=== PATIENT | female | born 1960 | race Caucasian/White ===

== ENCOUNTER → 2019-09-18 10:15 | Outpatient (CLI) | payer MEDICARE, SELFPAY ==
--- NOTE | ~2019-09-18 | DEXA_ITS ---
Bone Density Report Name: Raquel Marino Age: 58 Sex: Female Ethnicity: White Date of : 1960 Indication: monitoring treatment; height loss; postmenopausal Referring Provider: SWEETIE REECE Study: Bone densitometry was performed. Exam Date: September 18, 2019 Accession number: [id number] Bone Density: Region BMD T-score Z-score Classification AP Spine (L1, L2, L3) 0.947 -0.6 0.7 Normal Femoral Neck (Left) 0.767 -0.7 0.5 Normal Total Hip (Left) 1.007 0.5 1.5 Normal Femoral Neck (Right) 0.738 -1.0 0.3 Normal Total Hip (Right) 0.938 0.0 0.9 Normal Total Hip Mean 0.973 0.3 1.2 Normal World Health Organization criteria for BMD impression classify patients as: Normal (T-score at or above -1.0), Osteopenia (T-score between -1.0 and -2.5), or Osteoporosis (T-score at or below -2.5). 10-year Fracture Risk: FRAX not reported because: All T-scores for Spine Total, Hip Total, Femoral Neck at or above -1.0 Treated for osteoporosis Previous Exams: Region Exam Age BMD T-score BMD Change BMD Change Date g/cm2 vs Baseline vs Previous AP Spine(L1, L2, L3) 09/18/2019 58 0.947 -0.6 -0.018 -0.018 04/13/2015 54 0.966 -0.5 Total Hip(Left) 09/18/2019 58 1.007 0.5 0.044* 0.044* 04/13/2015 54 0.963 0.2 Total Hip(Right) 09/18/2019 58 0.938 0.0 0.015 0.015 04/13/2015 54 0.923 -0.2 *Denotes significance at 95% confidence level, LSC for AP Spine = 0.022 g/cm2, LSC for Total Hip = 0.027 g/cm2 Clinical Information Provided by Patient: Is being treated for osteoporosis Has used the following medications: HRT (i.e. estrogen/hormone therapy), Vitamin D, Calcium Patient maximum height was 63 Menopause Age: 47 Drinks caffeinated beverages Onset of menses at age 11 Number of children 3 Impression: The patient has normal bone mass. No significant bone loss was observed. Discussion: PATIENT UNDER TREATMENT WITH NO SIGNIFICANT BMD LOSS SINCE LAST EXAM. In an untreated patient, BMD typically declines with age. A lack of decline or gain is usually a sign that treatment is efficacious and fracture risk is reduced. It is important to ask patients whether they are taking their medications and to encourage continued and appropriate compliance with their osteoporosis therapies to reduce fracture risk. It is also important to review their risk factors and encourage appropriate calcium and vitamin D
== END ==
PROVIDERS: PCP Family Medicine; Visit Provider Obstetrics & Gynecology
DX: Z78.0 Asymptomatic menopausal state (principal)
CPT/HCPCS: 77080

== ENCOUNTER → 2020-06-10 13:41 | Outpatient (CLI) | payer MEDICARE, SELFPAY ==
--- NOTE | ~2020-06-10 | MM_ITS ---
EXAMINATION: MM screening delphine BI w cindy HISTORY: Screening TECHNIQUE: Craniocaudal and mediolateral oblique 3-D tomosynthesis images were obtained and synthetic 2-D images were generated. CAD analysis was submitted and interpreted. COMPARISON: Comparison to multiple prior studies sequentially, with oldest reviewed study dated 02/24. BREAST PARENCHYMAL COMPOSITION: The breasts are heterogenously dense, which may obscure small masses. FINDINGS: There are developing masses/asymmetries in both breasts which are partially obscured by fib roglandular tissue. There are no suspicious calcifications. IMPRESSION: 1. Developing bilateral breast masses/asymmetries. 2. Additional spot compression and mediolateral views with possible follow-up breast ultrasound recom mended. BI-RADS Category 0: Incomplete: Needs additional imaging evaluation. Reviewed, dictated and finalized at location A. HOUSE PICKER IMPRESSION: 1. Developing bilateral breast masses/asymmetries. 2. Additional spot compression and mediolateral views with possible follow-up b reast ultrasound recommended. BI-RADS Category 0: Incomplete: Needs additional imaging evaluation.
== END ==
PROVIDERS: Referring Provider Obstetrics & Gynecology Gynecology; Visit Provider Nurse Practitioner Family
DX: Z12.31 Encounter for screening mammogram for malignant neoplasm of breast (principal)
CPT/HCPCS: 77063; 77067

== ENCOUNTER → 2020-07-15 14:04 | Outpatient (CLI) | payer MEDICARE, SELFPAY ==
--- NOTE | ~2020-07-15 | MMUS_ITS ---
EXAMINATION: MM diagnostic delphine BI w cindy, US breast BI complete HISTORY: Follow-up breast asymmetries TECHNIQUE: Additional 3-D tomosynthesis images of the breasts were performed and synthetic 2-D images were generated. CAD analysis was submitted and interpreted. High resolution complete bilateral breas t ultrasound was performed. COMPARISON: Comparison to multiple prior studies sequentially, with oldest reviewed study dated 02/24. BREAST PARENCHYMAL COMPOSITION: The breasts are heterogenously dense, which may obscure small masses. FINDINGS: MAMMOGRAPHIC FINDINGS: There are bilateral breast masses which are partially obscured by fibroglandular tissue. There are sc attered benign breast calcifications. There is a tissue marker in the central aspect of the left earnest st posteriorly. ULTRASOUND: Right breast ultrasound: There are multiple benign-appearing cysts of the right breast. In addition t here is a oval hypoechoic 5 mm mass at 10:00, 6 cm from the nipple, likely a complicated cyst. Left breast ultrasound: Multiple cysts of the left breast. No suspicious masses identified in the lef t breast to suggest malignancy. IMPRESSION: 1. Probable benign right breast mass at 10:00, 6 cm from the nipple. Multiple benign cysts are identi fied in both breasts corresponding to masses identified by mammography. 2. Recommend 6 month follow-up limited right breast ultrasound BI-RADS category 3, probably benign findings. Reviewed, dictated and finalized at location A. IFIER IMPRESSION: 1. Probable benign right breast mass at 10:00, 6 cm from the nipple. Multiple b enign cysts are identified in both breasts corresponding to masses identified b y mammography. 2. Recommend 6 month follow-up limited right breast ultrasound BI-RADS category 3, probably benign findings.
== END ==
PROVIDERS: Visit Provider Obstetrics & Gynecology
DX: N63.11 Unspecified lump in the right breast, upper outer quadrant (principal); N60.02 Solitary cyst of left breast
CPT/HCPCS: 76641; 77062; 77066; G0279

== ENCOUNTER → 2021-01-14 14:49 | Outpatient (CLI) | payer MEDICARE, SELFPAY ==
--- NOTE | ~2021-01-14 | US_ITS ---
US breast RT limited DATE: 01/14/2021 15:19 INDICATION: Six-month follow-up of 10:00 5 mm hypoechoic area noted on 07/15/2020 ultrasound examinati on of right breast TECHNIQUE: Targeted ultrasound color flow imaging at 10:00 6 cm from nipple COMPARISON: 07/15/2020 right breast ultrasound FINDINGS: An approximately 4.5 mm hypoechoic area is identified at 10:00 6 cm from the nipple. There is no posterior shadowing or color flow signal associated with this finding. There has been no interv al increase in size since 07/15/2020. IMPRESSION: BI-RADS Category 3: Probably benign Recommendation: 6 month targeted right breast ultrasound follow-up at 10:00 6 cm from nipple Reviewed, dictated and finalized at Location A. Reviewed, dictated and finalized at location A. IMPRESSION: BI-RADS Category 3: Probably benign Recommendation: 6 month targeted right breast ultrasound follow-up at 10:00 6 c m from nipple
== END ==
PROVIDERS: Visit Provider Obstetrics & Gynecology
DX: R92.8 Other abnormal and inconclusive findings on diagnostic imaging of breast (principal)
CPT/HCPCS: 76642

== ENCOUNTER → 2021-08-21 09:11 | Outpatient (CLI) | payer MEDICARE, SELFPAY ==
--- NOTE | ~2021-08-21 | MMUS_ITS ---
EXAMINATION: MM diagnostic delphine BI w cindy, US breast BI complete HISTORY: Bilateral breast masses TECHNIQUE: Additional 3-D tomosynthesis images of the breasts were performed and synthetic 2-D images were generated. CAD analysis was submitted and interpreted. High resolution bilateral complete breas t ultrasound was performed. COMPARISON: Comparison to multiple prior studies sequentially, with oldest reviewed study dated 08/2015. BREAST PARENCHYMAL COMPOSITION: The breasts are heterogenously dense, which may obscure small masses. FINDINGS: MAMMOGRAPHIC FINDINGS: There are multiple masses in both breasts, largest in the right breast at approximately 12:00 measuri ng up to 3.5 cm. There are multiple scattered masses in the left breast which are partially obscured by fibroglandular tissue. ULTRASOUND: Complete bilateral US of all 4 quadrants of the breasts and retroareolar region was reviewed. Bilateral breast ultrasound: There are multiple cysts of both breasts, largest in the right breast at 12:00 measuring 3 cm maximum dimension corresponding to the mammographic finding. At 10:00, 6 cm fro m the nipple there is an oval hypoechoic mass with parallel orientation, no posterior features or int ernal vascularity measuring 7 mm, likely benign. No suspicious masses in the left breast. IMPRESSION: 1. Probable benign sonographic mass of the right breast at 10:00, 6 cm from the nipple. 2. Recommend 6 month follow-up targeted right breast ultrasound BI-RADS category 3, probably benign findings. Reviewed, dictated and finalized at location A. 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 Probable benign sonographic mass of the right breast at 10:00, 6 cm from the nipple. 2. Recommend 6 month follow-up targeted right breast ultrasound BI-RADS category 3, probably benign findings.
== END ==
PROVIDERS: Visit Provider Obstetrics & Gynecology Gynecology
DX: R92.8 Other abnormal and inconclusive findings on diagnostic imaging of breast (principal)
CPT/HCPCS: 76641; 77062; 77066; G0279

== ENCOUNTER → 2022-02-19 08:54 | Outpatient (CLI) | payer MEDICARE, SELFPAY ==
--- NOTE | ~2022-02-19 | US_ITS ---
EXAMINATION: US breast RT limited HISTORY: Six-month follow-up for probably benign right breast mass TECHNIQUE: Limited right breast ultrasound was performed. FINDINGS: There is a 9 mm cyst in the right breast at the 10:00 location 6 cm from the nipple. No ellen picious cystic or solid mass is identified. IMPRESSION: No suspicious cystic or solid mass identified. Recommend routine screening mammography, due in . BI-RADS Category 2: Benign finding(s). Reviewed, dictated and finalized at location A. IMPRESSION: No suspicious cystic or solid mass identified. Recommend routine screening mamm ography, due in August. BI-RADS Category 2: Benign finding(s).
== END ==
PROVIDERS: Visit Provider Obstetrics & Gynecology Gynecology
DX: R92.8 Other abnormal and inconclusive findings on diagnostic imaging of breast (principal)
CPT/HCPCS: 76642

== ENCOUNTER 2022-03-30 00:11 | Day surgery (SDC) | payer MEDICARE, SELFPAY ==
[2022-03-24 18:01] VITALS: BMI 28.5
--- NOTE | 2022-03-24 18:06 | PC.NURSE ---
Report to the Outpatient Waiting Room, entrance under the green pavilion located off [facility], at time __07:15AM on date __4-55-50 . OR Time: __09:15AM . - You and your visitor will be asked to self-screen and do not enter if you have any COVID symptoms. - Only one visitor and NO children visitors are allowed at this time. - The patient visitor is requested to leave or wait in car when not with patient due to restrictions. - A mask is required within the hospital. Patients may have clear liquids (water, carbonated beverages, clear teas, apple juice) until 3 hours prior to surgery with a maximum of 20 ounces. - No food from midnight until time of surgery - CLEAR LIQUIDS UP UNTIL 06:15AM Take the following medications with a SIP of water the morning of surgery: N/A Medications to discontinue per physician VITAMINS Date to take last bsbx [id number] Please no make-up, nail khmer, hairspray, perfume, deodorant, or body powder the day of surgery. No jewelry (including any body piercings) or valuables the day of surgery, leave them at home. Please take a shower or bath the night before, or the morning of, surgery with an antibacterial soap. Wear comfortable, loose fitting clothing. - Jewelry must be removed prior to entering the operating room. Rings and piercings that are not removed may be cut off. - The hospital will not accept responsibility for valuables. - Please leave all valuables, including medications, at home the day of surgery. If you are going home after surgery, a licensed flatbed driver must drive you home. - NO public transportation without another adult. - We recommend that an adult stay with you for 24 hours following discharge. - We also recommend that you do not drive, make important decision, drink alcoholic beverages, or take any drugs that were not prescribed by your health care provider for at least 24 hours after your discharge time. Follow any additional instructions given to you from your surgeon. If you or anyone in your household have experienced Covid symptoms in the past week, please notify your surgeon or the nurse liaison at the phone number below for possible testing. Telephone instructions given to ____PATIENT___and asked if any additional questions and then verbalized understanding. Patient advised to call surgeon office or pre surgery nurse liaison [phone] if any additional questions.
--- NOTE | 2022-03-30 07:30 | WPDHPUPDATE1 ---
History and Physical Update Update Date/Time: 03/30/22 07:30 History and Physical has been reviewed, including an updated exam of the patient. There are NO changes in the patient's condition. Risks, benefits, and alternatives have been discussed and questions answered. Patient agrees to proceed with procedure.
--- NOTE | 2022-03-30 07:30 | PM.HPGS ---
History of Present Illness History of Present Illness Consent: Risks, benefits, and alternatives have been discussed and questions answered. Patient agrees to proceed with procedure. Chief complaint: postmenopausal bleeding Narrative: Raquel Marino is a 61 year old female with an episode postmenopausal bleeding in December and a 2nd episode in January. Was recommended to proceed with workup. Patient presents today for hysteroscopy D&C. Risks of infection, bleeding, and perforation were reviewed. Possible pathology was discussed. Patient voices understanding and agrees to proceed. Review of Systems Genitourinary: Genitourinary: Reports other (Cramping) Musculoskeletal: Musculoskeletal: Reports back pain and Reports arthralgias PMFSH Past Medical History Medical History (Updated 03/30/22 @ 07:34 by Dior Miranda MD) GERD (gastroesophageal reflux disease) (normal spontaneous vaginal delivery) x3 Surgical History Surgical History (Updated 03/30/22 @ 07:33 by Dior Miranda MD) H/O cervical discectomy H/O left breast biopsy H/O lumbar discectomy History of tonsillectomy History of tubal ligation Family History Family History (Updated 06/12/19 @ 14:45 by Miranda Martínez) Sibling Family history of coronary artery disease Mother Family history of coronary artery disease, Onset Age: 76 Patient's mother is Heart disease Unknown Diabetes mellitus Cerebrovascular accident Heart disease Hypertension Sibling Kidney disease Father Kidney disease Social History Social History Smoking packs per day: 1 Smoking cigarettes per day: 20.0 Years smoked: 10 Smoking pack-years: 10.00 Smoking status: Former smoker Tobacco type: cigarettes Second hand tobacco smoke exposure: No Smoking end date: 08/09/06 Alcohol intake: never Substance use: never Substance use type: does not use Living arrangements: with family Spiritual care concerns: No Meds Home Medications and Allergies Home Medications Medication Instructions Recorded Confirmed Type estradiol 1 mg tablet 1 mg PO DAILY 03/24/22 03/30/22 History medroxyprogesterone 2.5 mg tablet 2.5 mg PO DAILY 03/24/22 03/30/22 History multivitamin with minerals-folic 1 tablet PO DAILY 03/24/22 03/30/22 History acid 0.4 mg tablet omega-3 fatty acids 1 cap PO DAILY 03/24/22 03/30/22 History omeprazole 20 mg tablet,delayed 20 mg PO DAILY 03/24/22 03/30/22 History release Allergies Allergy/AdvReac Type Severity Reaction Status Date / Time duloxetine Allergy Severe Diarrhea Verified 03/30/22 07:27 fluoxetine Allergy Severe Diarrhea Verified 03/30/22 07:27 venlafaxine Allergy Severe Diarrhea Verified 03/30/22 07:27 citalopram AdvReac Severe Diarrhea Verified 03/30/22 07:27 benzocaine AdvReac Unknown allergic Verified 03/30/22 07:27 contact dermatitis cobalt chloride AdvReac Unknown allergic Verified 03/30/22 07:27 contact dermatitis methylisothiazolinone AdvReac Unknown allergic Verified 03/30/22 07:27 contact dermatitis neomycin AdvReac Unknown allergic Verified 03/30/22 07:27 contact dermatitis propylene glycol AdvReac Unknown allergic Verified 03/30/22 07:27 contact dermatitis limonene AdvReac Unknown allergic Uncoded 03/30/22 07:27 contact dermatitis linalool AdvReac Unknown allergic Uncoded 03/30/22 07:27 contact dermatitis methyldibroma glutaronitrile AdvReac Unknown allergic Uncoded 03/30/22 07:27 contact dermatitis sesquiterpene lactone mix AdvReac Unknown allergic Uncoded 03/30/22 07:27 contact dermatitis tea tree oil AdvReac Unknown allergic Uncoded 03/30/22 07:27 contact dermatitis Exam Const: General: healthy appearing and alert Orientation/consciousness: patient oriented x3 GI: GI Palp: Yes Soft to palpation, No Tenderness to palpation present (GI) and No Palpa
[2022-03-30] MEDS: ACETAMINOPHEN 500 MG TABLET 1000 MG PO (07:38)
[2022-03-30] MEDS: LACTATED RINGERS 1,000 ML 30 ML IV CONT (07:45)
--- NOTE | 2022-03-30 07:49 | WPDANESEPPF ---
Anes - Initial Pre Proc Eval Procedure: Operation Date: 03/30/22 09:00 Proposed Procedures p Hysteroscopy Dilation and Curettage - Dior Miranda MD Date/Time: 03/30/22 07:49 Surgeon: Dior Miranda MD Pre Op Diagnosis: postmenopausal bleeding Patient Data Age: 61 Gender: F Height: 1.6 m Weight: 73 kg Allergies Allergy/AdvReac Type Severity Reaction Status Date / Time duloxetine Allergy Severe Diarrhea Verified 03/30/22 07:27 fluoxetine Allergy Severe Diarrhea Verified 03/30/22 07:27 venlafaxine Allergy Severe Diarrhea Verified 03/30/22 07:27 citalopram AdvReac Severe Diarrhea Verified 03/30/22 07:27 benzocaine AdvReac Unknown allergic Verified 03/30/22 07:27 contact dermatitis cobalt chloride AdvReac Unknown allergic Verified 03/30/22 07:27 contact dermatitis methylisothiazolinone AdvReac Unknown allergic Verified 03/30/22 07:27 contact dermatitis neomycin AdvReac Unknown allergic Verified 03/30/22 07:27 contact dermatitis propylene glycol AdvReac Unknown allergic Verified 03/30/22 07:27 contact dermatitis limonene AdvReac Unknown allergic Uncoded 03/30/22 07:27 contact dermatitis linalool AdvReac Unknown allergic Uncoded 03/30/22 07:27 contact dermatitis methyldibroma glutaronitrile AdvReac Unknown allergic Uncoded 03/30/22 07:27 contact dermatitis sesquiterpene lactone mix AdvReac Unknown allergic Uncoded 03/30/22 07:27 contact dermatitis tea tree oil AdvReac Unknown allergic Uncoded 03/30/22 07:27 contact dermatitis Home Medications Medication Instructions Recorded Confirmed Type estradiol 1 mg tablet 1 mg PO DAILY 03/24/22 03/30/22 History medroxyprogesterone 2.5 mg tablet 2.5 mg PO DAILY 03/24/22 03/30/22 History multivitamin with minerals-folic 1 tablet PO DAILY 03/24/22 03/30/22 History acid 0.4 mg tablet omega-3 fatty acids 1 cap PO DAILY 03/24/22 03/30/22 History omeprazole 20 mg tablet,delayed 20 mg PO DAILY 03/24/22 03/30/22 History release Patient hx anesthesia problems: none Family hx anesthesia problems: none Results Review: All pre-operative results and documents have been reviewed as part of the pre-operative evaluation. [facility] Past Medical History Medical History (Updated 03/30/22 @ 07:34 by Dior Miranda MD) GERD (gastroesophageal reflux disease) (normal spontaneous vaginal delivery) x3 Surgical History Surgical History (Updated 03/30/22 @ 07:33 by Dior Miranda MD) H/O cervical discectomy H/O left breast biopsy H/O lumbar discectomy History of tonsillectomy History of tubal ligation Family History Family History (Updated 06/12/19 @ 14:45 by Miranda Martínez) Sibling Family history of coronary artery disease Mother Family history of coronary artery disease, Onset Age: 76 Patient's mother is Heart disease Unknown Diabetes mellitus Cerebrovascular accident Heart disease Hypertension Sibling Kidney disease Father Kidney disease Social History Social History Smoking packs per day: 1 Smoking cigarettes per day: 20.0 Years smoked: 10 Smoking pack-years: 10.00 Smoking status: Former smoker Tobacco type: cigarettes Second hand tobacco smoke exposure: No Smoking end date: 08/09/06 Alcohol intake: never Substance use: never Substance use type: does not use Living arrangements: with family Spiritual care concerns: No Anes - Eval Final PreProcedure Day of Procedure 03/30/22 07:49 Patient weight: obese Heart: regular rate and rhythm Lungs: clear to auscultation and normal air movement Airway: Mallampati scale class II Neurological: alert and oriented Last oral intake: >/= 8 hours ASA classification: II Emergent: no Anesthetic plan: proceed Anesthesia type and monitoring: general GIVS and LMA Results Review: All pre-operative results and do
[2022-03-30 07:54] VITALS: BP 143/74; PULSE 62; RESP 16; TEMP 36.6; O2SAT 100
[2022-03-30] MEDS: LIDOCAINE HCL 1% PF 30 ML VIAL INFILTRATE (09:06)
[2022-03-30 09:47] VITALS: BP 145/68; PULSE 61; RESP 16; O2SAT 94
--- NOTE | 2022-03-30 09:49 | P.OP_ITS ---
Procedure Note - Detailed Date of Procedure 03/30/22 Pre-op Diagnosis postmenopausal bleeding Post-op Diagnosis Same Procedure Performed D&C hysteroscopy with MyoSure resection of fibroid Surgeon Dior Miranda MD Anesthesia MAC and Local Findings Uterus sounds to 8cm. There is a large anterior right fibroid blocking the right half of the upper endometrium. The remainder of the endometrium appears grossly atrophic. Once the fibroid is resected the remainder of the endometrium also appears atrophic. Description of Procedure The patient is taken to the operating room and placed under anesthesia in the dorsal lithotomy position. She was prepped and draped in the usual sterile fashion. [place] speculum was placed in the vagina and the cervix grasped on the anterior lip with a tenaculum. The cervix is injected in each quadrant with 1% lidocaine. The uterus is sounded to 8cm. The cervix is serially dilated with Hegar to an 8. The diagnostic hysteroscope was placed with the above- stated findings. In order to visualize around the fibroid it needed to be resected. The MyoSure device is opened and placed and under direct visualization the fibroid is removed almost in its entirety. The myoma graspers were used to remove the final 2 pieces. The hysteroscope was replaced and a good affect is noted. No further abnormalities are noted. A medium sharp curette is used to curette the endometrium until a good uterine cry was noted in all areas. Minimal materials obtained consistent with the atrophic appearance. Fluid balance at the end of the case was 100cc deficit. All instruments were then removed. Sponge, needle, and instrument counts are correct per the OR staff. Patient was awakened from anesthesia and taken to recovery in stable condition. Estimated Blood Loss 5 Drains No Packing No Pathology Yes (Endometrial curettings and shavings) Complications No immediate complications Condition Stable Disposition PACU
[2022-03-30] MEDS: fentaNYL CITRATE INJ (*CRX) 100 MCG/2 ML VIAL 25 MCG IV PUSH ×3 (09:58→10:07)
[2022-03-30 10:05] VITALS: BP 130/61; PULSE 57; RESP 16
[2022-03-30] MEDS: oxyCODONE HCL (*CRX) 5 MG TAB IR PO (10:20)
[2022-03-30 10:35] VITALS: BP 132/69; PULSE 50; RESP 16
== END 2022-03-30 10:56 | disposition home or self-care (01) ==
PROVIDERS: Visit Provider Obstetrics & Gynecology Gynecology
PROC: 0U5B8ZZ Destruction of Endometrium, Via Natural or Artificial Opening Endoscopic (ICD-10-PCS; CPT 58563; principal; 2022-03-30 09:00)
DX: N95.0 Postmenopausal bleeding (principal); Z87.891 Personal history of nicotine dependence; K21.9 Gastro-esophageal reflux disease without esophagitis; D25.9 Leiomyoma of uterus, unspecified; E66.9 Obesity, unspecified; Z68.30 Body mass index [BMI] 30.0-30.9, adult
CPT/HCPCS: 58561; 88305; A9270; J2704; J3010; J7030; J7120

== ENCOUNTER → 2022-08-27 09:27 | Outpatient (CLI) | payer MEDICARE, SELFPAY ==
--- NOTE | ~2022-08-27 | US_ITS ---
Pelvic ultrasound. Clinical History: Postmenopausal bleeding Technique: Realtime transabdominal and transvaginal scanning of the pelvis was performed. Color flow Doppler and Doppler spectral analysis were performed. Findings: The uterus is anteverted. The endometrial stripe is poorly delineated. Suggestion of 2 cm hypoechoic mass, which could reflect a submucosal fibroid. Suggestion of additional similar appearing 1.5 cm mass, possibly additional submucosal fibroid. Neither ovary is clearly delineated.. There is no evidence of free fluid in the cul de sac. Impression: Possible submucosal fibroids versus possibly endometrial thickening. Delineation of the endometrial s tripe is limited related to patient body habitus. Pre and postcontrast pelvic MR advised to better as sess for fibroid versus endometrial thickening. Reviewed, dictated and finalized at location . LLENCE COACH Impression: Possible submucosal fibroids versus possibly endometrial thickening. Delineatio n of the endometrial stripe is limited related to patient body habitus. Pre and postcontrast pelvic MR advised to better assess for fibroid versus endometrial thickening.
== END ==
PROVIDERS: Visit Provider Nurse Practitioner
DX: N95.0 Postmenopausal bleeding (principal)
CPT/HCPCS: 76830

== ENCOUNTER 2022-09-14 00:03 | Day surgery (SDC) | payer MEDICARE, SELFPAY ==
[2022-09-04 09:16] VITALS: BMI 29.7
--- NOTE | 2022-09-04 09:22 | PC.NURSE ---
Report to the Outpatient Waiting Room, entrance under the green pavilion located off [facility], at time 0600 on date 09/14/22. Planned Procedure Time: 0730. Time changes happen often and if your time is changed the preop area will call you the afternoon before. - You and your visitor will be asked to self-screen and do not enter if you have any COVID symptoms. - Only one visitor is requested with a max of two and NO children visitors are allowed at this time. - The patient visitor may be requested to leave or wait in car when not with patient due to distancing restrictions. - A mask is optional within the hospital at this time. Patients may have clear liquids (water, carbonated beverages, clear teas, apple juice) until 3 hours prior to surgery with a maximum of 20 ounces. - No food from midnight until time of surgery Take the following medications with a SIP of water the morning of surgery: N/A DO NOT STOP ANY OF YOUR OTHER PRESCRIPTION MEDICATIONS PRIOR TO SURGERY EXCEPT THE FOLLOWING Medications to discontinue per physician: VITAMINS/SUPPLEMENTS Date to take last dose: 09/10/22 Please no make-up, nail occitan, hairspray, perfume, deodorant, or body powder the day of surgery. No jewelry (including any body piercings) or valuables the day of surgery, leave them at home. Please take a shower or bath the night before, or the morning of, surgery with an antibacterial soap. Wear comfortable, loose fitting clothing. - Jewelry must be removed prior to entering the operating room. Rings and piercings that are not removed may be cut off. - The hospital will not accept responsibility for valuables. - Please leave all valuables, including medications, at home the day of surgery. If you are going home after surgery, a licensed backhaul driver must drive you home. - NO public transportation without another adult if you receive anesthesia. - We recommend that an adult stay with you for 24 hours following discharge. - We also recommend that you do not drive, make important decision, drink alcoholic beverages, or take any drugs that were not prescribed by your health care provider for at least 24 hours after your discharge time. Follow any additional instructions given to you from your surgeon. If you or anyone in your household have experienced Covid symptoms in the past week, please notify your surgeon or the nurse liaison at the phone number below for possible testing. Telephone instructions given to PT - MICHELLE RUCKER and asked if any additional questions and then verbalized understanding. Patient advised to call surgeon office or pre surgery nurse liaison [phone] if any additional questions.
[2022-09-14 06:15] VITALS: BP 132/67; PULSE 54; RESP 16; TEMP 36.1; O2SAT 100
[2022-09-14] MEDS: ACETAMINOPHEN 500 MG TABLET 1000 MG PO (06:40)
--- NOTE | 2022-09-14 07:03 | WPDANESEPPF ---
Anes - Initial Pre Proc Eval Procedure: Operation Date: 09/14/22 07:30 Proposed Procedures p Hysteroscopy with Dilation and Curettage - Dior Miranda MD Date/Time: 09/14/22 07:03 Surgeon: Dior Miranda MD Pre Op Diagnosis: Post Menopausal Bleeding Patient Data Age: 61 Gender: F Height: 1.6 m Weight: 77.65 kg Last Vital Signs Temp 36.1 C L 09/14/22 06:15 Pulse 54 L 09/14/22 06:15 Resp 16 09/14/22 06:15 BP 132/67 09/14/22 06:15 Pulse Ox 100 09/14/22 06:15 O2 Del Method Room Air 09/14/22 06:15 Allergies Allergy/AdvReac Type Severity Reaction Status Date / Time duloxetine Allergy Severe Diarrhea Verified 09/14/22 06:25 fluoxetine Allergy Severe Diarrhea Verified 09/14/22 06:25 venlafaxine Allergy Severe Diarrhea Verified 09/14/22 06:25 citalopram AdvReac Severe Diarrhea Verified 09/14/22 06:25 benzocaine AdvReac Unknown allergic Verified 09/14/22 06:25 contact dermatitis cobalt chloride AdvReac Unknown allergic Verified 09/14/22 06:25 contact dermatitis methylisothiazolinone AdvReac Unknown allergic Verified 09/14/22 06:25 contact dermatitis neomycin AdvReac Unknown allergic Verified 09/14/22 06:25 contact dermatitis propylene glycol AdvReac Unknown allergic Verified 09/14/22 06:25 contact dermatitis limonene AdvReac Unknown allergic Uncoded 09/14/22 06:25 contact dermatitis linalool AdvReac Unknown allergic Uncoded 09/14/22 06:25 contact dermatitis methyldibroma glutaronitrile AdvReac Unknown allergic Uncoded 09/14/22 06:25 contact dermatitis sesquiterpene lactone mix AdvReac Unknown allergic Uncoded 09/14/22 06:25 contact dermatitis tea tree oil AdvReac Unknown allergic Uncoded 09/14/22 06:25 contact dermatitis Home Medications Medication Instructions Recorded Confirmed Type estradiol 1 mg tablet 1 mg PO DAILY 03/24/22 09/14/22 History multivitamin with minerals-folic 1 tablet PO DAILY 03/24/22 09/14/22 History acid 0.4 mg tablet omega-3 fatty acids 1 cap PO DAILY 03/24/22 09/14/22 History pantoprazole 40 mg tablet,delayed 40 mg PO DAILY 09/04/22 09/14/22 History release progesterone micronized 200 mg 200 mg PO HS 09/04/22 09/14/22 History capsule Patient hx anesthesia problems: none Family hx anesthesia problems: other (mother slow to awaken) Results Review: All pre-operative results and documents have been reviewed as part of the pre-operative evaluation. PMFSH Past Medical History Medical History GERD (gastroesophageal reflux disease) (normal spontaneous vaginal delivery) x3 Surgical History Surgical History H/O cervical discectomy H/O left breast biopsy H/O lumbar discectomy History of tonsillectomy History of tubal ligation Family History Family History Sibling Family history of coronary artery disease Mother Family history of coronary artery disease, Onset Age: 76 Patient's mother is Heart disease Unknown Diabetes mellitus Cerebrovascular accident Heart disease Hypertension Sibling Kidney disease Father Kidney disease Social History Social History Smoking packs per day: 1 Smoking cigarettes per day: 20.0 Years smoked: 10 Smoking pack-years: 10.00 Smoking status: Former smoker Tobacco type: cigarettes Second hand tobacco smoke exposure: No Smoking end date: 08/09/06 Alcohol intake: current Drinks per week: 4 Substance use: never Substance use type: does not use Living arrangements: with family Spiritual care concerns: No Anes - Eval Final PreProcedure Day of Procedure 09/14/22 07:03 Patient weight: obese Heart:
[2022-09-14] MEDS: LACTATED RINGERS 1,000 ML 30 ML IV CONT (07:07)
--- NOTE | 2022-09-14 07:21 | WPDHPUPDATE1 ---
History and Physical Update Update Date/Time: 09/14/22 07:21 History and Physical has been reviewed, including an updated exam of the patient. There are NO changes in the patient's condition. Risks, benefits, and alternatives have been discussed and questions answered. Patient agrees to proceed with procedure.
--- NOTE | 2022-09-14 07:21 | PM.HPGS ---
History of Present Illness History of Present Illness Consent: Risks, benefits, and alternatives have been discussed and questions answered. Patient agrees to proceed with procedure. Chief complaint: Post Menopausal Bleeding Narrative: Raquel Marino is a 61 year old female with persistent postmenopausal bleeding despite progesterone. Patient with D&C hysteroscopy in March 30 with benign findings. Was recommended to repeat the procedure to evaluate the endometrium for new changes. Risks of infection, bleeding, perforation, and possible pathology were reviewed. Patient voices understanding and agrees to proceed. Review of Systems Review of Systems: not repeated day of surgery; patient states no changes in status PMFSH Past Medical History Medical History GERD (gastroesophageal reflux disease) (normal spontaneous vaginal delivery) x3 Surgical History Surgical History (Updated 09/14/22 @ 07:23 by Dior Miranda MD) H/O cervical discectomy H/O left breast biopsy H/O lumbar discectomy History of hysteroscopy March 30 with myomectomy and benign findings History of tonsillectomy History of tubal ligation Family History Family History Sibling Family history of coronary artery disease Mother Family history of coronary artery disease, Onset Age: 76 Patient's mother is Heart disease Unknown Diabetes mellitus Cerebrovascular accident Heart disease Hypertension Sibling Kidney disease Father Kidney disease Social History Social History Smoking packs per day: 1 Smoking cigarettes per day: 20.0 Years smoked: 10 Smoking pack-years: 10.00 Smoking status: Former smoker Tobacco type: cigarettes Second hand tobacco smoke exposure: No Smoking end date: 08/09/06 Alcohol intake: current Drinks per week: 4 Substance use: never Substance use type: does not use Living arrangements: with family Spiritual care concerns: No Meds Home Medications and Allergies Home Medications Medication Instructions Recorded Confirmed Type estradiol 1 mg tablet 1 mg PO DAILY 03/24/22 09/14/22 History multivitamin with minerals-folic 1 tablet PO DAILY 03/24/22 09/14/22 History acid 0.4 mg tablet omega-3 fatty acids 1 cap PO DAILY 03/24/22 09/14/22 History pantoprazole 40 mg tablet,delayed 40 mg PO DAILY 09/04/22 09/14/22 History release progesterone micronized 200 mg 200 mg PO HS 09/04/22 09/14/22 History capsule Allergies Allergy/AdvReac Type Severity Reaction Status Date / Time duloxetine Allergy Severe Diarrhea Verified 09/14/22 06:25 fluoxetine Allergy Severe Diarrhea Verified 09/14/22 06:25 venlafaxine Allergy Severe Diarrhea Verified 09/14/22 06:25 citalopram AdvReac Severe Diarrhea Verified 09/14/22 06:25 benzocaine AdvReac Unknown allergic Verified 09/14/22 06:25 contact dermatitis cobalt chloride AdvReac Unknown allergic Verified 09/14/22 06:25 contact dermatitis methylisothiazolinone AdvReac Unknown allergic Verified 09/14/22 06:25 contact dermatitis neomycin AdvReac Unknown allergic Verified 09/14/22 06:25 contact dermatitis propylene glycol AdvReac Unknown allergic Verified 09/14/22 06:25 contact dermatitis limonene AdvReac Unknown allergic Uncoded 09/14/22 06:25 contact dermatitis linalool AdvReac Unknown allergic Uncoded 09/14/22 06:25 contact dermatitis methyldibroma glutaronitrile AdvReac Unknown allergic Uncoded 09/14/22 06:25 contact dermatitis sesquiterpene lactone mix AdvReac Unknown allergic Uncoded 09/14/22 06:25 contact dermatitis tea tree oil AdvReac Unknown allergic Uncoded 09/14/22 06:25 contact dermatitis Vital Signs Vital Signs - 24 hr
[2022-09-14] MEDS: LIDOCAINE HCL 1% PF 30 ML VIAL 10 ML INFILTRATE (07:44)
--- NOTE | 2022-09-14 08:31 | SUR.OPER ---
Pathologist talked to Dr Miranda [id number] pertaining to specimen sent to lab for Frozen Section for tissue evaluation.
[2022-09-14 08:38] VITALS: BP 86/50; PULSE 61; RESP 14; O2SAT 100
--- NOTE | 2022-09-14 08:51 | W.PM.PROC2 ---
Procedure Note - Detailed Date of Procedure 09/14/22 Pre-op Diagnosis Post Menopausal Bleeding Post-op Diagnosis Same Procedure Performed Hysteroscopy with myomectomy Surgeon Dior Miranda MD Anesthesia MAC and Local Findings large fibroid filling 3 force of the endometrial cavity; atrophic appearing endometrium; posterior wall perforation Description of Procedure The patient is taken to the operating room and placed under anesthesia in the dorsal lithotomy position. She was prepped and draped in usual sterile fashion. [place] speculum was placed in the vagina and the cervix grasped on the anterior lip tenaculum. The cervix is injected in each quadrant with 1% lidocaine. The uterus is sounded to 8cm. The diagnostic hysteroscope was placed and the large fibroid is noted. The Aveeta resection device is placed through the hysteroscope. Under direct visualization the majority of the fibroid is resected. Fluid balance remained approximately 100 to 200 throughout the majority of the case. While resecting the remainder at the posterior wall, fluid imbalance became 700 and the current fluid bag was emptied. Upon reconnecting the next fluid bag, I inspected the posterior wall carefully and a perforation was noted. The case was stopped and all instruments removed. The specimen was sent for immediate frozen section to verify no bowel tissue present. Frozen section returned with only myometrium and endometrium present. The patient was fully awakened from anesthesia and taken to recovery in stable condition. The final fluid imbalance was 900cc the majority of which was intraperitoneally through the perforation. Only approximately 200 is suspected to be intravenous. Sponge, needle, and instrument counts are correct per the OR staff. Estimated Blood Loss -5.0 Drains No Packing No Pathology Yes ( endometrial shavings) Complications Other complications ( posterior uterine wall perforation) Condition Stable Disposition PACU
[2022-09-14 09:00] VITALS: BP 117/80; PULSE 64; RESP 14; O2SAT 100
[2022-09-14 09:30] VITALS: BP 138/63; PULSE 45; RESP 14
== END 2022-09-14 09:53 | disposition home or self-care (01) ==
PROVIDERS: Visit Provider Obstetrics & Gynecology Gynecology
PROC: 0U5B8ZZ Destruction of Endometrium, Via Natural or Artificial Opening Endoscopic (ICD-10-PCS; CPT 58563; principal; 2022-09-14 07:30)
DX: N95.0 Postmenopausal bleeding (principal); D25.9 Leiomyoma of uterus, unspecified; N99.71 Accidental puncture and laceration of a genitourinary system organ or structure during a genitourinary system procedure; K21.9 Gastro-esophageal reflux disease without esophagitis; Z87.891 Personal history of nicotine dependence; E66.9 Obesity, unspecified; Z68.30 Body mass index [BMI] 30.0-30.9, adult
CPT/HCPCS: 58561; 88305; 88331; A9270; J2250; J2405; J2704; J3010; J7120

== ENCOUNTER 2022-09-15 00:10 | Emergency (ER) | payer MEDICARE, SELFPAY ==
--- NOTE | ~2022-09-15 | CT_ITS ---
CT Abdomen and Pelvis with contrast. History: Abdominal pain. Spiral CT of the abdomen and pelvis was performed after the administration of intravenous contrast. 1 00 cc of Omnipaque 350 was administered intravenously without complication. Dose reduction technique was used on this scan by utilizing automated exposure control and iterative reconstruction technique. The dose-length product (DLP) was 588.83 mGy-cm. Findings: Scans through the lung bases demonstrate mild atelectatic change. Small hiatal hernia noted . The liver, spleen, pancreas, gallbladder, adrenals and kidneys are within normal limits. No evidence of aortic aneurysm. No lymphadenopathy is seen. There is no evidence of bowel obstruction. There is no evidence to suggest acute appendicitis or dive rticulitis. Images through the pelvis were performed. Urinary bladder unremarkable. No adnexal mass evident. Trac e ascites is seen. Questionable tiny amount of free air in the right adnexal region. Impression: Questionable small amount of free air in the right adnexal region. Correlate for postprocedural carranza e versus any possibility of bowel perforation. Trace free fluid present, but no fluid collection. Small hiatal hernia. Reviewed, dictated and finalized at location . [employer] JOURNALIST Impression: Questionable small amount of free air in the right adnexal region. Correlate fo r postprocedural change versus any possibility of bowel perforation. Trace free fluid present, but no fluid collection. Small hiatal hernia.
[2022-09-15 00:23] VITALS: BP 144/71; PULSE 68; RESP 22; TEMP 37.1; O2SAT 98
[2022-09-15 00:30] LABS: Basophils Percent Auto 0.2 % (0.2-1.2); Eosinophils Absolute Auto 0.1 K/mm3 (0-0.3); Eosinophils Percent Auto 1.3 % (0-4.4); Hematocrit 35.2 % (37.0-47.0); Hemoglobin 11.7 g/dL (12.0-15.0); Immature Granulocyte Absolute 0.03 K/mm3 (0.00-0.031); Immature Granulocyte Percent A 0.3 % (0-0.5); Lymphocytes Absolute Auto 2.44 K/mm3 (0.9-3.2); Lymphocytes Percent Auto 22.3 % (18.3-44.2); Mean Corpuscular HGB Conc 33.2 g/dl (32-36); Mean Corpuscular Hemoglobin 31.3 pg (26-34); Mean Corpuscular Volume 94.1 fl (80-100); Mean Platelet Volume 9.4 fl (7.4-10.4); Monocytes Absolute Auto 0.5 K/mm3 (0.1-0.6); Monocytes Percent Auto 4.6 % (2.6-8.5); Neutrophils Absolute Auto 7.8 K/mm3 (1.3-6.7); Neutrophils Percent Auto 71.3 % (45.5-73.1); Platelet Count Result 315 k/mm3 (150-375); Red Blood Count 3.74 M/mm3 (4.2-5.4); Red Cell Distribution Width 13.5 % (11.5-14.5); White Blood Count 10.9 K/mm3 (4.5-10.0)
[2022-09-15 00:39] LABS: Alanine Aminotransferase 22 U/L (6-35); Albumin Level 3.7 g/dL (3.5-5.1); Alkaline Phosphatase 62 U/L (38-126); Anion Gap 2 mmol/L (8-16); Aspartate Amino Transferase 23 U/L (14-36); Bilirubin,Total 0.4 mg/dL (0.2-1.3); Blood Urea Nitrogen 11 mg/dL (7-17); Calcium 8.9 mg/dL (8.4-10.2); Carbon Dioxide 28 mmol/L (22-30); Chloride 103 mmol/L (98-107); Estimated CRCL calculation 77 ml/min; Estimated Glomerular Filt Rate > 60; Glucose 104 mg/dL (65-110); Lipase 82 U/L (23-300); Potassium 3.7 mmol/L (3.4-5.0); Sodium 133 mmol/L (137-145)
[2022-09-15 01:00] VITALS: BP 131/73; PULSE 70; RESP 18; TEMP 36.8; O2SAT 97
--- NOTE | 2022-09-15 02:20 | ED.GENADULT ---
HPI - General Adult General Chief complaint: Abdominal Pain Stated complaint: abdominal pain Time Seen by Provider: 09/15/22 02:12 History of Present Illness HPI narrative: 59-year-old female presents to the emergency department for evaluation of lower abdominal pain. Patient had a hysteroscopy and myomectomy today by Dr. Miranda. Patient states after the surgery she was feeling okay but after getting home she had increased abdominal pain. Patient describes lower abdominal pain that is intense and describes a lower abdominal pressure. Patient is also having associated vaginal bleeding. Procedure note describes a hysteroscopy with myomectomy due to a large fibroid Related Data Home Medications Medication Instructions Recorded Confirmed estradiol 1 mg tablet 1 mg PO DAILY 03/24/22 09/14/22 multivitamin with minerals-folic 1 tablet PO DAILY 03/24/22 09/14/22 acid 0.4 mg tablet omega-3 fatty acids 1 cap PO DAILY 03/24/22 09/14/22 pantoprazole 40 mg tablet,delayed 40 mg PO DAILY 09/04/22 09/14/22 release progesterone micronized 200 mg 200 mg PO HS 09/04/22 09/14/22 capsule Allergies Allergy/AdvReac Type Severity Reaction Status Date / Time duloxetine Allergy Severe Diarrhea Verified 09/15/22 01:03 fluoxetine Allergy Severe Diarrhea Verified 09/15/22 01:03 venlafaxine Allergy Severe Diarrhea Verified 09/15/22 01:03 citalopram AdvReac Severe Diarrhea Verified 09/15/22 01:03 benzocaine AdvReac Unknown allergic Verified 09/15/22 01:03 contact dermatitis cobalt chloride AdvReac Unknown allergic Verified 09/15/22 01:03 contact dermatitis methylisothiazolinone AdvReac Unknown allergic Verified 09/15/22 01:03 contact dermatitis neomycin AdvReac Unknown allergic Verified 09/15/22 01:03 contact dermatitis propylene glycol AdvReac Unknown allergic Verified 09/15/22 01:03 contact dermatitis limonene AdvReac Unknown allergic Uncoded 09/15/22 01:03 contact dermatitis linalool AdvReac Unknown allergic Uncoded 09/15/22 01:03 contact dermatitis methyldibroma glutaronitrile AdvReac Unknown allergic Uncoded 09/15/22 01:03 contact dermatitis sesquiterpene lactone mix AdvReac Unknown allergic Uncoded 09/15/22 01:03 contact dermatitis tea tree oil AdvReac Unknown allergic Uncoded 09/15/22 01:03 contact dermatitis Review of Systems Review of Systems: CONSTITUTIONAL: Denies fever, chills, or sweats. EYES: Denies visual changes, redness, or discharge. ENT: Denies rhinorrhea, congestion, sore throat, or otalgia. CARDIOVASCULAR: Denies chest pain, palpitations, or edema. RESPIRATORY: Denies cough or dyspnea. GASTROINTESTINAL: See HPI GENITOURINARY: Denies dysuria or hematuria. SKIN: Denies rash or itching. MUSCULOSKELETAL: Denies back pain, joint pain, or myalgia. NEUROLOGIC: Denies headache, numbness, or weakness. [facility] Past Medical History Medical History (Updated 09/15/22 @ 05:33 by Maxime Gates MD) GERD (gastroesophageal reflux disease) (normal spontaneous vaginal delivery) x3 Surgical History Surgical History (Updated 09/14/22 @ 07:23 by Dior Miranda MD) H/O cervical discectomy H/O left breast biopsy H/O lumbar discectomy History of hysteroscopy March 30 with myomectomy and benign findings History of tonsillectomy History of tubal ligation Family History Family History Sibling Family history of coronary artery disease Mother Family history of coronary artery disease, Onset Age: 76 Patient's mother is Heart disease Unknown Diabetes mellitus Cerebrovascular accident Heart disease Hypertension Sibling Kidney disease Father Kidney disease Social History Social History Smoking packs per day: 1 Smoking cigarettes per day: 20.0 Years smoke
[2022-09-15] MEDS: HYDROmorphone HCL INJ (*CRX) 1 MG/ML SYR IV PUSH (02:22)
[2022-09-15 02:30] VITALS: BP 118/56; PULSE 90; RESP 14; O2SAT 96
[2022-09-15 02:44] LABS: Prothrombin Time 12.5 Seconds (11.1-14.7)
[2022-09-15 02:45] LABS: Partial Thromboplastin Time 28.7 SECONDS (22.3-36.8)
[2022-09-15 03:54] LABS: RBC Urine 0-2 /hpf (0-2); Squamous Epithelial Cell Urine Rare /hpf (Few); WBC Urine 0-3 /hpf
[2022-09-15 03:57] LABS: Appearance Urine Clear (Clear); Bilirubin Urine Negative (Negative); Blood Urine 1+ (Negative); Color Urine Yellow (Yellow); Glucose Urine UA Negative (Negative); Ketones Urine Negative (Negative); Leukocyte Esterase Ur Negative LEU/UL (Negative); Nitrate Urine Negative (Negative); Protein Urine Negative (Negative); Urobilinogen Urine 0.2 mg/dL (<2.0); pH Urine 8.5 (5.0-9.0)
[2022-09-15 03:59] LABS: Add Urine Microscopic? YES
[2022-09-15 04:32] VITALS: BP 119/60; PULSE 94; RESP 14; O2SAT 97
[2022-09-15 05:45] VITALS: BP 100/64; PULSE 78; RESP 19; O2SAT 97
== END 2022-09-15 05:45 | disposition home or self-care (01) ==
PROVIDERS: Emergency Provider Emergency Medicine; PCP Emergency Medicine
DX: G89.18 Other acute postprocedural pain (principal); R10.30 Lower abdominal pain, unspecified; K21.9 Gastro-esophageal reflux disease without esophagitis; Z87.891 Personal history of nicotine dependence
CPT/HCPCS: 36415; 74177; 80053; 81001; 83690; 85025; 85610; 85730; 86850; 86900; 86901; 96374; 96375; 99284; J0131; J1170; Q9967

== ENCOUNTER → 2022-11-02 14:47 | Outpatient (CLI) | payer MEDICARE, SELFPAY ==
--- NOTE | ~2022-11-02 | MM_ITS ---
EXAMINATION: MM screening delpihne BI w cindy HISTORY: Screening TECHNIQUE: Craniocaudal and mediolateral oblique 3-D tomosynthesis images were obtained and synthetic 2-D images were generated. CAD analysis was submitted and interpreted. COMPARISON: Comparison to multiple prior studies sequentially, with oldest reviewed study dated 05/08. BREAST PARENCHYMAL COMPOSITION: The breasts are heterogeneously dense, which may obscure small masses FINDINGS: There are multiple developing masses in the right breast which are obscured by fibroglandul ar tissue. The left breast is stable without evidence for malignancy. Left breast asymmetries are unc hanged. IMPRESSION: 1. Developing right breast masses, increased in number and size compared with prior studies. 2. Additional mammographic views and possible breast ultrasound are recommended. BI-RADS Category 0: Incomplete: Needs additional imaging evaluation. Reviewed, dictated and finalized at location A. IMPRESSION: 1. Developing right breast masses, increased in number and size compared with p rior studies. 2. Additional mammographic views and possible breast ultrasound are recommended . BI-RADS Category 0: Incomplete: Needs additional imaging evaluation.
== END ==
PROVIDERS: Visit Provider Nurse Practitioner
DX: Z12.31 Encounter for screening mammogram for malignant neoplasm of breast (principal); N63.10 Unspecified lump in the right breast, unspecified quadrant
CPT/HCPCS: 77063; 77067

== ENCOUNTER → 2022-11-27 08:45 | Outpatient (CLI) | payer MEDICARE, SELFPAY ==
--- NOTE | ~2022-11-27 | MMUS_ITS ---
EXAMINATION: MM diagnostic delphine RT w cindy, US breast RT limited HISTORY: Right breast masses on screening mammogram TECHNIQUE: Additional 3-D tomosynthesis images of the right breast were performed and synthetic 2-D i mages were generated. CAD analysis was submitted and interpreted. High resolution limited right breas t ultrasound was performed. COMPARISON: 02/19/2022, 08/21/2021, 01/14/2021, 07/15/2020, 06/10/2020 FINDINGS: MAMMOGRAPHIC FINDINGS: Spot compression views demonstrate multiple obscured waxing and waning right breast masses suspicious mammographically detected mass is identified. ULTRASOUND: A previously described cyst at the 10:00 location, 6 cm from the nipple is stable. An adjacent 2 cm s imple cyst is also noted. IMPRESSION: 1. No mammographic or sonographic evidence of malignancy. 2. Recommend routine screening mammography in one year. BI-RADS Category 2: Benign finding(s). Reviewed, dictated and finalized at location A. IMPRESSION: 1. No mammographic or sonographic evidence of malignancy. 2. Recommend routine screening mammography in one year. BI-RADS Category 2: Benign finding(s).
== END ==
PROVIDERS: Visit Provider Obstetrics & Gynecology Gynecology
DX: R92.8 Other abnormal and inconclusive findings on diagnostic imaging of breast (principal)
CPT/HCPCS: 76642; 77061; 77065; G0279

== ENCOUNTER 2022-12-24 09:18 | Outpatient (CLI) | payer MEDICARE, SELFPAY ==
--- NOTE | ~2022-12-24 | US_ITS ---
EXAMINATION: US breast RT limited HISTORY: Unspecified lump in the upper outer quadrant of the right breast TECHNIQUE: Limited right breast ultrasound is performed. COMPARISON: 11/27/2022, 02/19/2022, 08/21/2021 FINDINGS: Multiple simple cysts are noted in the upper outer quadrant of the breast in the area of pa lpable concern. No suspicious cystic or solid mass is identified. IMPRESSION: Multiple right breast cysts corresponding to the palpable abnormality of concern. BI-RADS Category 2: Benign finding(s). Reviewed, dictated and finalized at location A. IMPRESSION: Multiple right breast cysts corresponding to the palpable abnormality of concer n. BI-RADS Category 2: Benign finding(s).
== END 2022-12-24 09:19 | disposition home or self-care (01) ==
LOC: CHSIMG 09:25
PROVIDERS: Visit Provider Nurse Practitioner
DX: N60.01 Solitary cyst of right breast (principal)
CPT/HCPCS: 76641; 76642

== ENCOUNTER 2023-12-14 14:53 | Outpatient (CLI) | payer MEDICARE, SELFPAY ==
--- NOTE | ~2023-12-14 | MM_ITS ---
EXAMINATION: MM screening delphine BI w cindy HISTORY: Screening mammogram TECHNIQUE: Craniocaudal and mediolateral oblique 3-D tomosynthesis images were obtained and synthetic 2-D images were generated. CAD analysis was submitted and interpreted. COMPARISON: 12/24/2022 Limited right breast ultrasound 11/27/2022 diagnostic right mammogram and Limited right breast ultrasound 11/02/2022 bilateral screening mammogram BREAST PARENCHYMAL COMPOSITION: The breasts are heterogeneously dense, which may obscure small masses . FINDINGS: There is waxing and waning of circumscribed masses over serial examinations consistent with fibrocystic breasts. There is no evidence of suspicious mass, calcification, or architectural distor tion to suggest malignancy in either breast. There has been no suspicious interval change. IMPRESSION: 1. Fibrocystic breasts. No mammographic evidence of malignancy. 2. Recommend routine screening mammography in one year. BI-RADS Category 2: Benign finding(s) Reviewed, dictated and finalized at location B.
== END 2023-12-14 14:54 ==
LOC: MICIMG 14:56
PROVIDERS: Visit Provider Nurse Practitioner
DX: Z12.31 Encounter for screening mammogram for malignant neoplasm of breast (principal); R92.8 Other abnormal and inconclusive findings on diagnostic imaging of breast
CPT/HCPCS: 77063; 77067

== ENCOUNTER 2024-09-25 11:47 | Outpatient (CLI) | payer MEDICARE, SELFPAY ==
--- NOTE | ~2024-09-25 | DEXA_ITS ---
Bone Density Report Name: MICHELLE RUCKER Age: 63 Sex: Female Ethnicity: White Date of : 1960 Indication: postmenopausal; screening for osteoporosis; Referring Provider: Dave, Anna Study: Bone densitometry was performed. Exam Date: September 25, 2024 Accession number: [id number] Bone Density: Region BMD T-score Z-score Classification AP Spine(L1-L4) 0.955 -0.8 0.9 Normal Femoral Neck (Left) 0.802 -0.4 1.1 Normal Total Hip (Left) 0.986 0.4 1.6 Normal Femoral Neck (Right) 0.774 -0.7 0.8 Normal Total Hip (Right) 0.958 0.1 1.4 Normal Femoral Neck Mean 0.788 -0.5 1.0 Normal Total Hip Mean 0.972 0.2 1.5 Normal World Health Organization criteria for BMD impression classify patients as: Normal (T-score at or above -1.0), Osteopenia (T-score between -1.0 and -2.5), or Osteoporosis (T-score at or below -2.5). Clinical Information Provided by Patient: Patient maximum height was 63 Menopause Age: 46 No regular weight bearing exercise Does not regularly consume dairy products Onset of menses at age 11 Number of children 3 Impression: The patient has normal bone mass. Discussion: BONE DENSITY IS ABOVE THE MINIMUM DESIRABLE LEVEL AT ALL SKELETAL SITES TESTED. This patient?s bone mineral density is above the minimum desirable level (T-score -1.0 or better) at all sites measured. The patient should follow a healthful lifestyle (good nutrition with adequate calcium and vitamin D, and appropriate weight-bearing exercise). Follow-Up: Consider repeating this study in 5 years or sooner if there is some new clinical indication. Reported by: BREANA on 09/25/2024 12:11:00 PM. Reviewed, dictated and finalized at location A.
--- OUTSIDE RECORDS SUMMARY | 2024-09-25 14:37 | XMS_ITS | Encounter Summary ---
Author Organization [facility] Healthcare Address [address] [place] [address] Care Team Providers Care Safety Deposit Clerk Name Role Phone Heather Henderson MD Primary Care Provider [phone] Maciej Coker MD Unavailable [phone] Encounter Details Date Type Department Care Team (Late st Contact Info) Description 12/14/2023 Orders Only [facility] [place] Health Information Management [address] [place] [id number] Scanning, Provider Social History Tobacco Use Types Packs/Day Years Used Date Smoking Tobacco: Former Cigarettes 1 29.8 0 10/31/1976 - 08/09/2006 Smokeless Tobacco: Never Comments:would stop for year s, then restart. never over 1 ppd Alcohol Use Standard Drinks/Week Comments Yes 0 (1 standard drink = 0.6 oz pur e alcohol) AUDIT-C Answer Date Recorded Q1: How often do you have a drink containing alc ohol? 2-4 times a month 04/14/2023 Q2: How many drinks containi ng alcohol do you have on a typical day when you are drinking? 3 or 4 04/14/2023 Q3: How often do you have si x or more drinks on one occasion? 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 Gender Identity Not on file Sexual Orientation Not on file documented as of this encounter Plan of Treatment Not on file documented as of this encounter Procedures Procedure Name Priority Date/Time Associated Diagnosis Comments SCAN - RADIOLOGY/IMAGING 12/14/2023 documented in this encounter Results * SCAN - RADIOLOGY/IMAGING (12/14/2023) Anatomical Region Laterality Modality Other us Provider Scanning Final Result documented in this encounter Visit Diagnoses Not on filedocumented in this encounter Care Teams Safety Deposit Clerk Relationship Specialty [place] [id number] [facility] [address] [place] [address] PCP - General Family Medicine 09/11/19 Maciej Coker MD [address] [facility] [address] [place] [address] Referring Physician Gastroenterology 04/17/24 documented as of this encounter
--- OUTSIDE RECORDS SUMMARY | 2024-09-25 14:37 | XMS_ITS | Patient Health Summary ---
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 This disclosure is being madepursuant to the Care Everywhere program and may not contain all information available regarding this patient. 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
--- OUTSIDE RECORDS SUMMARY | 2024-09-25 14:37 | XMS_ITS | Clinical Summary ---
Author Organization [facility] Address [address] [place] [address] Phone Care Team Providers Care Eyewear Consultant Name Role Phone Lizandro Pineda MD Primary Care Provider [phone] Social History Tobacco Use Types Packs/Day Years Used Date Smoking Tobacco: Never Assessed Comments Unknown Sex and Gender Information Value Date Recorded Sex Assigned at Not on file Legal Sex Female 9:21 PM CDT Gender Identity Not on file Sexual Orientation Not on file Plan of Treatment Health Maintenance Due Date Last Done Comments DTAP/TDAP/TD VACCINES (1 - Tdap) 10/31/1978 CERVICAL CANCER SCREENING 10/31/1989 BREAST CANCER SCREENING 1999 COLORECTAL SCREENING 10/31/2004 Colorectal Cancer Screening 10/31/2004 FIT-DNA Q 3 years 10/31/2004 FIT/FOBT Q 1 year 10/31/2004 Flex Sig/CT Colonography Q 5 years 10/31/2004 ZOSTER VACCINE (1 of 2) 10/31/2009 INFLUENZA VACCINE (#1) 2024 RSV VACCINE (60+ or ) (1 - 1-dose 75+ series) 10/31/2034 PNEUMOCOCCAL VACCINE 0-64 YEARS Aged Out No longer eligible based on patient's age to complete this topic Care Teams Eyewear Consultant Relationship Specialty Start Date End Date Lizandro Pineda MD [address] [place] [address] PCP - General Internal Medicine 03/22/19
--- OUTSIDE RECORDS SUMMARY | 2024-09-25 14:37 | XMS_ITS | Clinical Summary ---
Author Organization [facility] Address [address] [address] Phone Care Team Providers Care Architecture Consultant Name Role Phone Heather Henderson MD Primary Care Provider [phone] Maciej Coker MD Unavailable [phone] Allergies Active Allergy Reactions Criticality Noted Date Comments Benzocaine Rash Medium 09/11/2019 Citalopram Stomach upset Low 09/11/2019 [place] Chloride Rash Medium 09/11/2019 Duloxetine Stomach upset Low 09/11/2019 Fluoxetine Stomach upset Low 09/11/2019 Limonene Rash Medium 09/11/2019 Methyldibromoglutaronitrile Rash Medium 09/11/19 20 Methylisothiazolinone Rash Medium 09/11/2019 Neomycin Rash Medium 09/11/2019 Propylene Glycol Rash Medium 09/11/2019 Tea Tree Rash Medium 09/11/2019 Medications fish oil-dha-epa 1,200-144-216 mg capsule Take by mouth Activ e progesterone (PROMETRIUM) 200 mg capsule TAKE 1 CAPSULE BY MOUTH EVERYDAY AT BEDTIME 2 Active estradioL (ESTRACE) 0.5 mg tablet Take 1 tablet (0.5 mg total) by mouth daily 4 Active hydrocortisone (ANUSOL-HC) 2.5 % rectal creamIndication s:Hemorrhoids Insert into the rectum 2 (two) times a day 30 g 3 4 Active triamcinolone (KENALOG) 0.1 % creamIndication s:Ear itching Apply topically 2 (two) times a day as needed for irritation or rash (itchy ears) 15 g 3 4 Active famotidine (PEPCID) 40 mg tablet Take 1 tablet (40 mg total) by mouth 2 (two) times a day 4 Active omeprazole (PriLOSEC) 40 mg capsule Take 1 capsule (40 mg total) by mouth daily 4 Active Active Problems Problem Noted Date Diagnosed Date Obesity (BMI 30-39.9) 07/26/2024 Assessment & Plan (07/26/2024 1:28 PM RECRUITMENT AND OUTREACH ASSISTANT): BMI follow-up: Education provided Other hemorrhoids 04/17/2024 Assessment & Plan (04/17/2024 3:16 PM CDT): Longstanding No assoc constipation. Mostly itchy, not painful Will try Anusol-HC 2.5% rectal cream Epidermoid cyst 04/17/2024 Assessment & Plan (04/17/2024 3:16 PM CDT): Left upper back No s/s infection reassurance Skin lesion of right external ear 04/17/2024 Assessment & Plan (04/17/2024 3:15 PM CDT): 0.5 cm flesh-colored round skin lesion 3 o'clock position at entry to ear canal Not painful. Possibly wart Recommend referral to Dermatology for removal Immunization due 04/14/2023 Assessment & Plan (04/17/2024 3:18 PM CDT): Shingrix, Covid-19, influenza Declined all immunizations today Assessment & Plan (04/14/2023 6:14 AM CDT): Shingrix, Covid-19 booster Dyspnea 04/14/2023 Assessment & Plan (04/14/2023 4:53 PM CDT): Difficulty getting a deep breath. New onset over the last ~ 2 months. Episodes happen daily. Do not awaken her from sleep. Do not happen during exercise. No assoc chest pain, cough, wheezing, lightheadedness, or dizziness. Similar symptoms in the distant past, and provider prescribed Estrogen (presumed for menopausal symptoms and/or anxiety). She does have significant social stressors in caring for her granddaughter. Normal exam. No history of asthma. Quit smoking > 15 years ago. No red flags. Seems to be associated with mood and social stressors. Encouraged her to call if symptoms worsen or if they start to occur during activity Physical exam 10/12/2022 Assessment & Plan (04/17/2024 2:42 PM CDT): 03/2021 - TSH 1.02 02/2022 - Cr 0.79, eGFR 85 Glucose 98 Total 198; Trig 143; HDL 61; LDL 108 25(OH) Vit D 33 04/28/2023 - Cr 0.70, eGFR 97 Total 209; Trig 74; HDL 68; LDL 126 Vit B-12 436 (N) Folate > 20.0 H/H 13.0/40.3 Assessment & Plan (04/14/2023 6:07 AM CDT): 03/2021 - TSH 1.02 02/2022 - Cr 0.79, eGFR 85 Glucose 98 Total 198; Trig 143; HDL 61; LDL 108 25(OH) Vit D 33 Assessment & Plan (10/12/2022 3:45 PM RECRUITMENT AND OUTREACH ASSISTANT): 03/2021 - TSH 1.02 02/2022 - Cr 0.79, eGFR 85 Glucose 98 Total 198; Trig 143; HDL 61; LDL 108 25(OH) Vit D 33 Postmenopausal vaginal bleeding 02/12/2022 Assessment & Plan (04/14/2023 6:11 AM CDT): 03/2022 - D&C, hysteroscopy - benign 08/2022 - pelvic US - Uterus anteverted. Endometrial stripe poorly delineated. Suggestion of 2 cm hypoechoic mass, which could reflect a submucosal fibroid. Suggestions of add'l similar appearing 1.5 cm mass, possibly add'l fibroid. Neither ovary clearly delineated. No free fluid in cul de sac Currently: prometrium 300 mg daily Estradiol 1 mg daily Stable on current. Will follow-up with [facility] Assessment & Plan (10/12/2022 5:30 PM RECRUITMENT AND OUTREACH ASSISTANT): 03/2022 - D&C, hysteroscopy - benign 08/2022 - pelvic US - Uterus anteverted. Endometrial stripe poorly delineated. Suggestion of 2 cm hypoechoic mass, which could reflect a submucosal fibroid. Suggestions of add'l similar appearing 1.5 cm mass, possibly add'l fibroid. Neither ovary clearly delineated. No free fluid in cul de sac Currently: prometrium 300 mg daily Estradiol 1 mg daily Stable on current. Will follow-up with [facility] Assessment & Plan (02/12/2022 9:23 AM CDT): Has upcoming D&C in March 2022 for further evaluation Plantar fasciitis of left foot 02/12/2022 Assessment & Plan (07/26/2024 1:27 PM RECRUITMENT AND OUTREACH ASSISTANT): Handout given last office visit (October 2022) [email or web address] Contact information given for Podiatry - Dr. Dhaliwal, Dr. Sotelo, Dr. Weinstein Demonstrated stretching exercises in the office Continue use of shoe insoles for support and pain reduction Assessment & Plan (04/14/2023 6:12 AM CDT): Handout given last office visit (October 2022) [email or web address] Contact information given for Podiatry - Dr. Dhaliwal, Dr. Sotelo, Dr. Weinstein Demonstrated stretching exercises in the office Assessment & Plan (10/12/2022 4:13 PM RECRUITMENT AND OUTREACH ASSISTANT): Handout given [email or web address] Contact information given for Podiatry - Dr. Dhaliwal, Dr. Sotelo, Dr. Weinstein Demonstrated stretching exercises in the office Assessment & Plan (02/12/2022 3:29 PM CDT): Discussed diagnosis Handout given Demonstrated stretching exercises Postmenopausal symptoms 02/11/2022 Assessment & Plan (04/17/2024 3:13 PM CDT): Estradiol 0.5 mg daily Progesterone 200 mg daily Managed by [employer] [employer] Assessment & Plan (02/11/2022 9:48 AM CDT): Estradiol 1 mg daily Provera 2.5 mg daily Managed by [employer] Viral warts 03/25/2021 Assessment & Plan (03/25/2021 5:37 PM CDT): Right hand Discussed OTC treatment Handout given Fecal smearing 03/25/2021 Assessment & Plan (08/11/2021 4:25 PM RECRUITMENT AND OUTREACH ASSISTANT): Docusate does help OK to use daily OK to try OTC hemorrhoid cream as well. If symptoms do not resolve, will plan on GI referral Assessment & Plan (03/25/2021 5:40 PM CDT): New onset in last month with a feeling of incomplete bowel emptying. No history of similar No prior c-scope or abdominal imaging. (other than barium swallow 2018) Hemorrhoids on exam. Likely the fecal smearing is due to mild constipation, change in bowel habits, hemorrhoids Recommend hydration Consider OTC stool softener Handout given. Call if persistent Muscle cramps 03/25/2021 [place] or callus 03/25/2021 Assessment & Plan (03/25/2021 5:41 PM CDT): Between toes Recommend wide-toed shoes; OTC cushion Ear itching 04/01/2020 Assessment & Plan (04/17/2024 3:16 PM CDT): Normal exam Topical triamcinolone 0.1% cream BID PRN Assessment & Plan (02/12/2022 3:29 PM CDT): Normal exam OK to continue the topical steroid as needed Assessment & Plan (08/11/2021 4:25 PM RECRUITMENT AND OUTREACH ASSISTANT): Normal exam Recommend loratadine and Flonase Assessment & Plan (09/01/2020 9:49 AM RECRUITMENT AND OUTREACH ASSISTANT): At March 2020 office visit I went to all kind of allergies last year, and noone can every tell me why my ears itch like they do And they gave me this cream for it. But I hate to use it because it's a steroid. It does help. They get kind of crusty and stuff on the inside. I recommended dandruff shampoo and OTC oral antihistamine at that time. She tried the dandruff shampoo, but not the antihistamine She is still using the topical steroids, which help Recommend trying the loratadine Assessment & Plan (04/01/2020 9:53 AM CDT): Could consider dandruff shampoo to the area and/or OTC allergy medication. Screening for condition 04/01/2020 Assessment & Plan (04/17/2024 2:46 PM CDT): Patient screened for future fall risk; documentation of no falls in the past year or only 1 fall without injury in the past year Assessment & Plan (04/14/2023 6:12 AM CDT): Patient screened for future fall risk; documentation of no falls in the past year or only 1 fall without injury in the past year Assessment & Plan (10/12/2022 5:30 PM RECRUITMENT AND OUTREACH ASSISTANT): Patient screened for future fall risk; documentation of no falls in the past year or only 1 fall without injury in the past year Assessment & Plan (02/12/2022 8:59 AM CDT): Patient screened for future fall risk; documentation of no falls in the past year or only 1 fall without injury in the past year Assessment & Plan (04/01/2020 10:00 AM CDT): Patient screened for future fall risk; documentation of no falls in the past year or only 1 fall without injury in the past year BMI 29.0-29.9,adult 09/11/2019 Assessment & Plan (04/17/2024 2:45 PM CDT): Wt Readings from Last 3 Encounters: 04/17/24 75.8 kg (167 lb 3.2 oz) 04/14/23 75.8 kg (167 lb) 10/12/22 75.7 kg (166 lb 12.8 oz) Weight stable Body mass index is 29.63 kg/m . Assessment & Plan (04/14/2023 4:02 PM CDT): discussed healthy diet, exercise and adequate sleep Body mass index is 29.59 kg/m . Assessment & Plan (10/12/2022 3:52 PM RECRUITMENT AND OUTREACH ASSISTANT): discussed healthy diet, exercise and adequate sleep Body mass index is 29.55 kg/m . Assessment & Plan (02/12/2022 9:15 AM CDT): 03/2021 - total 234; Trig 73; HDL 82; LDL 137 discussed healthy diet, exercise and adequate sleep Body mass index is 29.59 kg/m . Assessment & Plan (08/11/2021 4:04 PM RECRUITMENT AND OUTREACH ASSISTANT): 03/2021 - total 234; Trig 73; HDL 82; LDL 137 discussed healthy diet, exercise and adequate sleep Body mass index is 29.77 kg/m . Assessment & Plan (03/25/2021 3:08 PM CDT): discussed healthy diet, exercise and adequate sleep Body mass index is 28.88 kg/m . Assessment & Plan (12/04/2020 12:22 PM CDT): Body mass index is 29.59 kg/m . Assessment & Plan (11/22/2020 2:51 PM CDT): discussed healthy diet, exercise and adequate sleep Body mass index is 29.06 kg/m . Assessment & Plan (08/30/2020 3:51 PM RECRUITMENT AND OUTREACH ASSISTANT): discussed healthy diet, exercise and adequate sleep Body mass index is 29.59 kg/m . Assessment & Plan (04/01/2020 9:45 AM CDT): discussed healthy diet, exercise and adequate sleep Body mass index is 28.88 kg/m . Assessment & Plan (09/11/2019 10:14 AM RECRUITMENT AND OUTREACH ASSISTANT): discussed healthy diet, exercise and adequate sleep Body mass index is 27.46 kg/m . History of abnormal mammogram 09/11/2019 Assessment & Plan (04/17/2024 3:18 PM CDT): [facility] [address] [place] [address] 05/10/2020 - mammogram - BiRads 0 Recommend add'l images both breasts 07/10/2020 - diag delphine and US bilateral - BiRads 3 Recommend 6 month follow-up right breast 01/14/2021 - US right breast - BiRads 3 Recommend 6 month right breast US 08/21/2021 - diag delphine and US bilateral - BiRads 3 Recommend 6 month followup right breast US 11/02/2022 - screening mammogram - Multiple developing masses in the right breast which are obscured by fibroglandular tissue. Left breast is stable without evidence for malignancy. Left breast asymmetries unchanged Developing right breast masses, increased in number and size compared with prior studies. Add'l mammographic view & possible breast ultrasound recommended. BiRads 0 11/27/2022 - right diagnostic mammogram and US - BiRads 2 She says that she did have a mammogram Spring 2023. Will ask MA to call for records Assessment & Plan (04/14/2023 4:49 PM CDT): [facility] [address] [place] [address] 05/10/2020 - mammogram - BiRads 0 Recommend add'l images both breasts 07/10/2020 - diag delphine and US bilateral - BiRads 3 Recommend 6 month follow-up right breast 01/14/2021 - US right breast - BiRads 3 Recommend 6 month right breast US 08/21/2021 - diag delphine and US bilateral - BiRads 3 Recommend 6 month followup right breast US 11/02/2022 - screening mammogram - Multiple developing masses in the right breast which are obscured by fibroglandular tissue. Left breast is stable without evidence for malignancy. Left breast asymmetries unchanged Developing right breast masses, increased in number and size compared with prior studies. Add'l mammographic view & possible breast ultrasound recommended. BiRads 0 She says that she did go for the add'l images Will request records Assessment & Plan (01/06/2023 3:12 PM CDT): [facility] [address] [place] [address] 05/10/2020 - mammogram - BiRads 0 Recommend add'l images both breasts 07/10/2020 - diag delphine and US bilateral BiRads 3 Recommend 6 month follow-up right breast 01/14/2021 - US right breast BiRads 3 Recommend 6 month right breast US 08/21/2021 - diag delphine and US bilateral BiRads 3 Recommend 6 month followup right breast US 11/02/2022 - screening mammogram - Multiple developing masses in the right breast which are obscured by fibroglandular tissue. Left breast is stable without evidence for malignancy. Left breast asymmetries unchanged Developing right breast masses, increased in number and size compared with prior studies. Add'l mammographic view & possible breast ultrasound recommended. BiRads 0 Assessment & Plan (10/12/2022 4:02 PM RECRUITMENT AND OUTREACH ASSISTANT): [facility] [address] [place] [address] 05/10/2020 - mammogram - BiRads 0 Recommend add'l images both breasts 07/10/2020 - diag delphine and US bilateral BiRads 3 Recommend 6 month follow-up right breast 01/14/2021 - US right breast BiRads 3 Recommend 6 month right breast US 08/21/2021 - diag delphine and US bilateral BiRads 3 Recommend 6 month followup right breast US follow-up images in February 2022 And currently has annual mammogram scheduled in 2 weeks Assessment & Plan (02/12/2022 9:23 AM CDT): [facility] [address] [place] [address] 05/10/2020 - mammogram - BiRads 0 Recommend add'l images both breasts 07/10/2020 - diag delphine and US bilateral BiRads 3 Recommend 6 month follow-up right breast 01/14/2021 - US right breast BiRads 3 Recommend 6 month right breast US 08/21/2021 - diag delphine and US bilateral BiRads 3 Recommend 6 month followup right breast US Has follow-up images scheduled for next Assessment & Plan (09/11/2019 11:39 AM RECRUITMENT AND OUTREACH ASSISTANT): ~ May 2019 Did see a breast surgeon. Dr. Juan Ramon Nath. Release for records to see when next mammogram is indicated Pain in both lower extremities 09/11/2019 Assessment & Plan (07/26/2024 1:27 PM RECRUITMENT AND OUTREACH ASSISTANT): 04/2021 - ABIs normal. Longstanding Weakness with stairs. Symptoms resolve with laying down. presumed related to back/neck pathology. Suspect lumbar stenosis. Exercises have helped in the past, but symptoms worsening Recommend lumbar x-ray. Handout on home exercises. Consider PT [email or web address] Continue use of shoe insoles for support and pain reduction Assessment & Plan (04/17/2024 3:18 PM CDT): 04/2021 - ABIs normal. Longstanding Weakness with stairs. Symptoms resolve with laying down. presumed related to back/neck pathology. Suspect lumbar stenosis. Exercises have helped in the past, but symptoms worsening Recommend lumbar x-ray. Handout on home exercises. Consider PT [email or web address] Assessment & Plan (03/25/2021 5:31 PM CDT): Longstanding presumed related to back/neck pathology Exercises have helped in the past, but symptoms worsening DDx RLS; muscle cramps; neurogenic claudication; vitamin deficiency; vascular claudication. Discussed possibilities with patient. She does have a smoking history, but not heavy Mildly decreased pulses on exam. Recommend labs and ABIs Assessment & Plan (11/22/2020 2:58 PM CDT): Longstanding Presumed from neck pain Encouraged continued walking Recommend against daily ibuprofen due to GERD OK to take Tylenol as needed Suggested Squats or lunges for strengthening in addition to the walking Assessment & Plan (09/11/2019 11:39 AM RECRUITMENT AND OUTREACH ASSISTANT): Longstanding Most likely related to back/neck pathology Exercises have helped in the past Encouraged her to resume Gastroesophageal reflux disease 09/11/2019 Assessment & Plan (04/17/2024 3:15 PM CDT): 10/10/2018 - EGD 11/16/2018 - EGD 05/15/2019 - EGD - Reflux in lower third of esophagus. A 3 cm segment of suspected Wilcox's esophagus; upper border of the suspected Wilcox's 37 cm from the incisors. GEJ 40 cm from the incisors; Stomach & duodenum normal pathology - gastric cardia-type mucosa & squamous mucosa w/ moderate chronic inflammation consistent w/ reflux; alcian blue stain equivocal for Wilcox's esophagus; no dysplasia, ulcer, or neoplasm. Stopped daily ASA 81 mg 03/2020 Pantoprazole 40 mg daily Persistent heartburn symptoms with difficulty swallowing despite PPI Recommend follow-up with GI Assessment & Plan (04/14/2023 6:10 AM CDT): 10/10/2018 - EGD 11/16/2018 - EGD 05/15/2019 - EGD - Reflux in lower third of esophagus. A 3 cm segment of suspected Wilcox's esophagus; upper border of the suspected Wilcox's 37 cm from the incisors. GEJ 40 cm from the incisors; Stomach & duodenum normal pathology - gastric cardia-type mucosa & squamous mucosa w/ moderate chronic inflammation consistent w/ reflux; alcian blue stain equivocal for Wilcox's esophagus; no dysplasia, ulcer, or neoplasm. Stopped daily ASA 81 mg 03/2020 Pantoprazole 40 mg daily Assessment & Plan (10/12/2022 4:03 PM RECRUITMENT AND OUTREACH ASSISTANT): 10/10/2018 - EGD 11/16/2018 - EGD 05/15/2019 - EGD - Reflux in lower third of esophagus. A 3 cm segment of suspected Wilcox's esophagus; upper border of the suspected Wilcox's 37 cm from the incisors. GEJ 40 cm from the incisors; Stomach & duodenum normal pathology - gastric cardia-type mucosa & squamous mucosa w/ moderate chronic inflammation consistent w/ reflux; alcian blue stain equivocal for Wilcox's esophagus; no dysplasia, ulcer, or neoplasm. Stopped daily ASA 81 mg 03/2020 Pantoprazole 40 mg daily Assessment & Plan (02/11/2022 9:46 AM CDT): 10/10/2018 - EGD 11/16/2018 - EGD 05/15/2019 - EGD - Reflux in lower third of esophagus. A 3 cm segment of suspected Wilcox's esophagus; upper border of the suspected Wilcox's 37 cm from the incisors. GEJ 40 cm from the incisors; Stomach & duodenum normal pathology - gastric cardia-type mucosa & squamous mucosa w/ moderate chronic inflammation consistent w/ reflux; alcian blue stain equivocal for Wilcox's esophagus; no dysplasia, ulcer, or neoplasm. Stopped daily ASA 81 mg 03/2020 Has been able to decrease her pantoprazole from 40 mg BID to once daily Has been stable on that until she ate some hot wings over the holidays Went back to BID for a bit Assessment & Plan (08/11/2021 4:15 PM RECRUITMENT AND OUTREACH ASSISTANT): 10/10/2018 - EGD 11/16/2018 - EGD 05/15/2019 - EGD - Reflux in lower third of esophagus. A 3 cm segment of suspected Wilcox's esophagus; upper border of the suspected Wilcox's 37 cm from the incisors. GEJ 40 cm from the incisors; Stomach & duodenum normal pathology - gastric cardia-type mucosa & squamous mucosa w/ moderate chronic inflammation consistent w/ reflux; alcian blue stain equivocal for Wilcox's esophagus; no dysplasia, ulcer, or neoplasm. Stopped daily ASA 81 mg 03/2020 Has been able to decrease her pantoprazole from 40 mg BID to once daily Has been stable on that until she ate some hot wings over the holidays Went back to BID for a bit Assessment & Plan (03/25/2021 5:30 PM CDT): 10/10/2018 - EGD 11/16/2018 - EGD 05/15/2019 - EGD In the lower third of the esophagus, reflux was present. A 3 cm segment of suspected Wilcox's esophagus was present; the upper border of the suspected Wilcox's was 37 cm from the incisors. The GEJ was 40 cm from the incisors; Stomach & duodenum were normal pathology - gastric cardia-type mucosa & squamous mucosa w/ moderate chronic inflammation consistent w/ reflux; alcian blue stain equivocal for Wilcox's esophagus; no dysplasia, ulcer, or neoplasm. Stopped daily ASA 81 mg 03/2020 Has been able to decrease her pantoprazole from 40 mg BID to once daily Did have to take two doses the other day , but not often Recommend continue at once daily Avoid oral NSAIDs Assessment & Plan (11/22/2020 2:58 PM CDT): 10/10/2018 - EGD 11/16/2018 - EGD 05/15/2019 - EGD In the lower third of the esophagus, reflux was present. A 3 cm segment of suspected Wilcox's esophagus was present; the upper border of the suspected Wilcox's was 37 cm from the incisors. The GEJ was 40 cm from the incisors; Stomach & duodenum were normal pathology - gastric cardia-type mucosa & squamous mucosa w/ moderate chronic inflammation consistent w/ reflux; alcian blue stain equivocal for Wilcox's esophagus; no dysplasia, ulcer, or neoplasm. Stopped daily ASA 81 mg 03/2020 Pantoprazole 40 mg BID Assessment & Plan (04/01/2020 10:00 AM CDT): 10/10/2018 - EGD 11/16/2018 - EGD 05/15/2019 - EGD In the lower third of the esophagus, reflux was present. A 3 cm segment of suspected Wilcox's esophagus was present; the upper border of the suspected Wilcox's was 37 cm from the incisors. The GEJ was 40 cm from the incisors; Stomach & duodenum were normal pathology - gastric cardia-type mucosa & squamous mucosa w/ moderate chronic inflammation consistent w/ reflux; alcian blue stain equivocal for Wilcox's esophagus; no dysplasia, ulcer, or neoplasm. Recommend stop daily ASA 81 mg Cont PPI Assessment & Plan (09/11/2019 11:39 AM RECRUITMENT AND OUTREACH ASSISTANT): Release for records from GI to see how long PPI is indicated Vitamin B12 deficiency 09/11/2019 Assessment & Plan (04/14/2023 6:11 AM CDT): 03/2021 - Vit B12, Folate normal 02/2022 - Vit B12, Folate normal H/H 12.9/40.8 MCV 97.8 (H) Assessment & Plan (10/12/2022 3:45 PM RECRUITMENT AND OUTREACH ASSISTANT): 03/2021 - Vit B12, Folate normal 02/2022 - Vit B12, Folate normal H/H 12.9/40.8 MCV 97.8 (H) Assessment & Plan (02/11/2022 9:47 AM CDT): 03/2021 - Vit B12, Folate normal Assessment & Plan (08/10/2021 8:43 AM RECRUITMENT AND OUTREACH ASSISTANT): 03/2021 - Vit B12, Folate normal Assessment & Plan (03/25/2021 5:30 PM CDT): 09/2019 - Vit B 12 930 pg/ml ([id number]) Recheck today Assessment & Plan (04/01/2020 9:40 AM CDT): 09/2019 - Vit B 12 930 pg/ml ([id number]) Assessment & Plan (09/11/2019 11:40 AM RECRUITMENT AND OUTREACH ASSISTANT): Low last year per patient. Recheck today Resolved Problems Problem Noted Date Diagnosed Date Resolved Date Colon cancer screening 10/12/202204/17 Assessment & Plan (04/14/2023 4:48 PM CDT): Last Cologuard Kit 04/08/2020 due for repeat screening Discussed screening options including repeat Cologuard Kit or Colonoscopy last office visit (October 2022) Cologuard Kit ordered, but she has not rec'd Will order again today Assessment & Plan (10/12/2022 5:29 PM RECRUITMENT AND OUTREACH ASSISTANT): Last Cologuard Kit 04/08/2020 Will be due for repeat screening Apr 2023 Discussed screening options including repeat Cologuard Kit or Colonoscopy She would like to repeat the [place] Kit Immunization counseling 03/25/202109/2021 Assessment & Plan (03/25/2021 5:32 PM CDT): Reviewed J&J Covid-19 vaccine. Reassured her that this is a very effective vaccine Currently no booster dose of Covid-19 vaccine recommend for non- immunocompromised patients Recommendations may change Left arm pain 12/04/2020 03/25/2021 Assessment & Plan (12/04/2020 12:25 PM CDT): Onset 3 days ago Possibly residual inflammation from vaccine triggered by neck pain, yard work Recommend ice OR heat to affected area. 20 minutes at a time, 2-3 times a day. Continue OTC ibuprofen Add muscle relaxer Call office if persistent or worsening. Acute non intractable tension-type headache 11/22/2020 12/04/2020 Assessment & Plan (11/22/2020 3:00 PM CDT): Onset after receiving Covid-19 vaccine 11/16/2020 The loose stools have resolved Some dehydration may contribute to the headaches. 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 Encouraged her to notify office if symptoms happen more often, more frequently, or are assoc with SOA, dizziness, diaphoresis, nausea Assessment & Plan (09/01/2020 9:50 AM RECRUITMENT AND OUTREACH ASSISTANT): Reproducible on exam Onset after add'l diagnostic breast imaging in Jun 2020 Likely costochondritis. Reassurance Discussed red flag signs and symptoms Recommend oral NSAIDs Call if persistent or changing. Annual physical exam 04/01/2020 021 Assessment & Plan (04/01/2020 10:01 AM CDT): Patient independant in all ADLs and IADLs. no significant decline in overall physical or mental health over last 12 months. no ER visits or hospital stays. Pap through [employer] recommend at least 10 minutes of moderate intensity exercise most days of the week with a goal of 150 minutes weekly. Encounters Date Type Department Care Team Description 07/26/2024 1:15 PM RECRUITMENT AND OUTREACH ASSISTANT Office Visit [facility] at [address] [phone] Suha Plascencia NP Pain in both lower extremities (Primary Dx); Plantar fasciitis of left foot; Obesity (BMI 30-39.9) 07/26/2024 Telephone [facility] at [address] [phone] Suha Plascencia NP from Last 3 Months Immunizations Immunization Administration Dates Next Due Influenza, Unspecified 04/17/2024(Deferr ed: Patient Refused),03/09/2024(Deferred: Patient Refused),06/15/2023(Deferred: Patient Refused),03/09/2022(Deferred: Patient Refused),03/09/2021(Deferred: Patient Refused),03/09/2020(Deferred: Patient decision),03/09/2020(Deferred: Patient decision),03/09/2020(Deferred: Patient decision),03/09/2020(Deferred: Patient decision),03/09/2019(Deferred: Patient decision) IXcellerate (J&J) SARS-CoV-2 Vaccination 11/16/2020 Pfizer SARS-CoV-2 Monovalent Vaccination (12+ Yrs) DEE-READY TO USE 08/29/2021 Surgical History Surgery Date Site/Laterality Comments CERVICAL DISC SURGERY 08/09/1990 - 08/08/1991 LUMBAR DISC SURGERY 08/09/1996 - 08/08/1997 TONSILLECTOMY COMBINED HYSTEROSCOPY DIAGNOSTIC / D&C 03/30/2022 HYSTEROSCOPY 09/14/2022 DILATION AND CURETTAGE OF UTERUS 09/14/2022 ESOPHAGOGASTRODUODENOSCOPY 05/15/2019 ESOPHAGOGASTRODUODENOSCOPY 11/16/2018 ESOPHAGOGASTRODUODENOSCOPY 10/10/2018 Medical History Medical History Date Comments Postmenopausal vaginal bleeding 02/12/2022 Family History Medical History Relation Name Comments No Known Problems Daughter 1 No Known Problems Daughter 2 Kidney failure Father Diabetes type II Mother Heart attack Mother Kidney disease Mother No Known Problems Son Breast cancer Neg Hx Colon cancer Neg Hx Ovarian cancer Neg Hx Relation Name Status Comments Daughter 1 Alive Daughter 2 Alive Father Mother Son Alive Social History Tobacco Use Types Packs/Day Years Used Date Smoking Tobacco: Former Cigarettes 1 29.8 0 10/31/1976 - 08/09/2006 Smokeless Tobacco: Never Tobacco Cessation:Counseling Given: Not Answered Comments:would stop for years, then restart. never over 1 ppd Alcohol [...] points, staff should administer the PHQ-9) 0 04/17/2024 Comments No Sex and Gender Information Value Date Recorded Sex Assigned at Not on file Legal Sex Female 4:12 PM RECRUITMENT AND OUTREACH ASSISTANT Gender Identity Not on file Sexual Orientation Not on file Obstetrics History Last Filed Vital Signs Vital Sign Reading Time Taken Comments Blood Pressure 134/86 07/26/2024 12:47 PM RECRUITMENT AND OUTREACH ASSISTANT Pulse 70 07/26/2024 12:47 PM RECRUITMENT AND OUTREACH ASSISTANT Temperature 36.5 C (97.7 F) 07/26/2024 12:47 PM RECRUITMENT AND OUTREACH ASSISTANT Respiratory Rate 18 07/26/2024 12:47 PM RECRUITMENT AND OUTREACH ASSISTANT Oxygen Saturation 99% 07/26/2024 12:47 PM RECRUITMENT AND OUTREACH ASSISTANT Inhaled Oxygen Concentration - - Weight 77.2 kg (170 lb 3.2 oz) 07/26/2024 12:47 PM RECRUITMENT AND OUTREACH ASSISTANT Height 160 cm (5' 3 ) 07/26/2024 12:47 PM RECRUITMENT AND OUTREACH ASSISTANT Body Mass Index 30.15 07/26/2024 12:47 PM RECRUITMENT AND OUTREACH ASSISTANT Plan of Treatment Health Maintenance Due Date Last Done Comments Cervical Cancer Screening 1960 Zoster Vaccine (1 of 2) 10/31/2009 Covid-19 Vaccine ( season) 2024 08/29/2021, 11/16/2020 Influenza Vaccine (#1) 2024 Breast Cancer Screening-Mammogram 06/15/2024 12/14/2023, 11/02/2022, 08/21/2021, Additional history exists Depression Screening 04/17/2025 04/17/2024, 04/14/2023, 04/14/2023, Additional history exists Regular Well Visit/Exam 18-64 04/17/2025 04/17/2024, 04/14/2023, 10/12/2022, Additional history exists Colon Cancer Screening-DNA Stool 05/03/2026 05/03/2023, 04/08/2020 Hepatitis C Screening Completed 03/25/2021 Colon Cancer Screening-FIT Discontinued 05/03/2023, Hepatitis B Screening Completed 04/17/2024 DTaP/Tdap/Td Vaccine Discontinued Pneumococcal vaccine <65 Aged Out No longer eligible based on patient's age to complete this topic Procedures Procedure Name Priority Date/Time Associated Diagnosis Comments SCREENING MAMMOGRAM 2D BILATERAL Schedule Routine, Read Routine (OP Routine) 12/14/2023 12:01 PM CDT STOOL DNA COLOGUARD Routine 05/03/2023 5:50 AM CDT Colon cancer screening Screening for rectal cancer HEPATITIS C ANTIBODY Routine 03/25/2021 3:48 PM CDT Annual physical exam Screening for viral disease from Last 3 Months or Most Recently Relevant to Health Maintenance Results * Screening Mammogram 2D Bilateral (12/14/2023 12:01 PM CDT) SCRIBED BI-RADS 2 Anatomical Region Laterality Modality Breast Bilateral Mammography Impressions 12/14/2023 12:01 PM CDT BiRads 2 [facility] [address] [place] [address] us Historical Provider MD DELGADO MAMMO PROCEDURES Carri l Result * Stool DNA - Cologuard (05/03/2023 5:50 AM CDT) Stool DNA - Cologuard Negative Negative [facility] (CLIA #:[id number]) Comment: NEGATIVE TEST RESULT. A negative Cologuard result indicates a low likelihood that a colorectal cancer (CRC) or advanced adenoma (adenomatous polyps with more advanced pre-malignant features) is present. The chance that a person with a negative Cologuard test has a colorectal cancer is less than 1 in 1500 (negative predictive value >99.9%) or has an advanced adenoma is less than 5.3% (negative predictive value 94.7%). These data are based on a prospective cross-sectional study of 10,000 individuals at average risk for colorectal cancer who were screened with both Cologuard and colonoscopy. (Emilia Anderson al, N Engl J Med 2014;370(14):1273-1119) The normal value (reference range) for this assay is negative. COLOGUARD RE-SCREENING RECOMMENDATION: Periodic colorectal cancer screening is an important part of preventive healthcare for asymptomatic individuals at average risk for colorectal cancer. Following a negative Cologuard result, the [place] [employer] Society and U.S. Multi-Society Task Force screening guidelines recommend a Cologuard re-screening interval of 3 years. References: [place] [employer] Guideline for Colorectal Cancer Screening: https://www.cancer.org/cancer/ncqpw-moctmi-nstamq/bhlbncydk-hrsqwluwg-xcxxlyy/ac s-rec ommendations.html.; Tyree WEINBERG, Diamond AN, Marie DrummondK, Colorectal Cancer Screening: Recommendations for Physicians and Patients from the U.S. Multi-Society Task Force on Colorectal Cancer Screening , Am J Gastroenterology 2017; 112:2916-9537. TEST DESCRIPTION: Composite algorithmic analysis of stool DNA-biomarkers with hemoglobin immunoassay. Quantitative values of individual biomarkers are not reportable and are not associated with individual biomarker result reference ranges. Cologuard is intended for colorectal cancer screening of adults of either sex, 45 years or older, who are at average-risk for colorectal cancer (CRC). Cologuard has been approved for use by the U.S. FDA. The performance of Cologuard was established in a cross sectional study of average-risk adults aged 50-84. Cologuard performance in patients ages 45 to 49 years was estimated by sub-group analysis of near-age groups. Colonoscopies performed for a positive result may find as the most clinically significant lesion: colorectal cancer [4.0%], advanced adenoma (including sessile serrated polyps greater than or equal to 1cm diameter) [20%] or non- advanced adenoma [31%]; or no colorectal neoplasia [45%]. These estimates are derived from a prospective cross-sectional screening study of 10,000 individuals at average risk for colorectal cancer who were screened with both Cologuard and colonoscopy. (Emilia Vickers et al, N Engl J Med 2014;370(14):8439-2329.) Cologuard may produce a false negative or false positive result (no colorectal cancer or precancerous polyp present at colonoscopy follow up). A negative Cologuard test result does not guarantee the absence of CRC or advanced adenoma (pre-cancer). The current Cologuard screening interval is every 3 years. ([place] [employer] and U.S. Multi-Society Task Force). Cologuard performance data in a 10,000 patient pivotal study using colonoscopy as the reference method can be accessed at the following location: www.[employer].UserEvents/results. Additional description of the Cologuard test process, warnings and precautions can be found at www.colMozyrd.UserEvents. Stool 05/03/2023 5:50 AM CDT 05/04/2023 4:27 PM CDT Heather Henderson MD LAB BODY FLUIDS AND STOOL S ORDERABLES Final Result [facility] (CLIA #:[id number]) [place] [address] * Hepatitis C antibody (03/25/2021 3:48 PM CDT) Hep C Ab Nonreactive Nonreactive STEPHENIE ROLDAN Comment: Interpretive Data Nonreactive: Antibodies to HCV not detected. Does NOT exclude the possibility of recent exposure to HCV. Equivocal: Equivocal for HCV antibodies. Supplemental molecular testing will be automatically performed to determine infection status in accordance with current CDC screening recommendations. Reactive: Positive for HCV antibodies. This may represent current or past HCV infection. Supplemental molecular testing will be automatically performed to determine current infection status in accordance with current CDC screening recommendations. Interpretive data was last revised on 2019. Blood 03/25/2021 3:48 PM CDT 03/25/2021 7:[address] [facility] Heather Henderson MD LAB MICROBIOLOGY - GENERA L ORDERABLES Final Result Performing Organization Address City/[facility] Co de Phone Number [facility] [address] [address] [place] [address] from Last 3 Months or Most Recently Relevant to Health Maintenance Insurance [facility] AETNA MEDICARE GOLD AETNA MEDICARE GOLD AETNA MEDICARE GOLD Care Teams Architecture Consultant Relationship Specialty [place] [address] [facility] [address] [place] [address] PCP - General Family Medicine 09/11/19 Maciej Coker MD [address] [facility] [facility] [address] [place], [place] [id number] Referring Physician Gastroenterology 04/17/24
--- OUTSIDE RECORDS SUMMARY | 2024-09-25 14:37 | XMS_ITS | Referral Summary ---
Author Organization [facility] Address [address] [place] [address] Care Team Providers Care Account Executive Name Role Phone Noah Jyo MD Primary Care Provider [phone] Source Comments [facility],non[facility] community hospital Affiliates and Associated Physician Practices is amultiple site organization consisting of ambulatory clinics and hospital sitesin [place], [place], [place] and [place]. This disclosure is being madepursuant to the Care Everywhere program and may not contain all information available regarding this patient. Last updated 18.[facility] Social History Tobacco Use Types Packs/Day Years Used Date Smoking Tobacco: Never Assessed Sex and Gender Information Value Date Recorded Sex Assigned at Not on file Gender Identity Not on file Sexual Orientation Not on file Plan of Treatment Not on file Care Teams Account Executive Relationship Specialty Start Date End Date Noah Joy MD [address] [facility] [address] [place] [address] PCP - General 09/30/22
--- OUTSIDE RECORDS SUMMARY | 2024-09-25 14:37 | XMS_ITS | Referral Summary ---
Author Organization [facility] Address [address] [address] Phone Care Team Providers Care Computer System Specialist Name Role Phone Heather Henderson MD Primary Care Provider [phone] Maciej Coker MD Unavailable [phone] Encounters Date Type Department Care Team Description 07/26/2024 Telephone Family Care at [address] [phone] Suha Plascencia NP 07/26/2024 1:15 PM BROWNELL OPERATOR Office Visit Family Care at [address] [phone] Suha Plascencia NP Pain in both lower extremities (Primary Dx); Plantar fasciitis of left foot; Obesity (BMI 30-39.9) from Last 3 Months Allergies Active Allergy Reactions Criticality Noted Date Comments Benzocaine Rash Medium 09/11/2019 Citalopram Stomach upset Low 09/11/2019 [place] Chloride Rash Medium 09/11/2019 Duloxetine Stomach upset [...] 07/26/2024 Assessment & Plan (07/26/2024 1:28 PM BROWNELL OPERATOR): BMI follow-up: Education provided Other hemorrhoids 04/17/2024 [...] Assessment & Plan (04/14/2023 6:14 AM CDT): Yehuda, Covid-19 booster Dyspnea 04/14/2023 Assessment & Plan [...] 33 Assessment & Plan (10/12/2022 3:45 PM BROWNELL OPERATOR): 03/2021 - TSH 1.02 02/2022 - Cr [...] daily Stable on current. Will follow-up with [facility] Assessment & Plan (10/12/2022 5:30 PM BROWNELL OPERATOR): 03/2022 - D&C, hysteroscopy - benign 08/2022 [...] daily Stable on current. Will follow-up with [facility] Assessment & Plan (02/12/2022 9:23 AM CDT): Has upcoming D&C in March 2022 for further evaluation Plantar fasciitis of left foot 02/12/2022 Assessment & Plan (07/26/2024 1:27 PM BROWNELL OPERATOR): Handout given last office visit (October 2022) [email or web address] Contact information given for Podiatry - Dr. Dhaliwal, Dr. Sotelo, Dr. Weinstein Demonstrated stretching exercises in the office Continue use of shoe insoles for support and pain reduction Assessment & Plan (04/14/2023 6:12 AM CDT): Handout given last office visit (October 2022) [email or web address] Contact information given for Podiatry - Dr. Dhaliwal, Dr. Sotelo, Dr. Weinstein Demonstrated stretching exercises in the office Assessment & Plan (10/12/2022 4:13 PM BROWNELL OPERATOR): Handout given [email or web address] Contact information given for Podiatry - Dr. Dhaliwal, Dr. Sotelo, Dr. Weinstein Demonstrated stretching exercises in the office Assessment & Plan (02/12/2022 3:29 PM CDT): Discussed diagnosis Handout given Demonstrated stretching exercises Postmenopausal symptoms 02/11/2022 Assessment & Plan (04/17/2024 3:13 PM CDT): Estradiol 0.5 mg daily Progesterone 200 mg daily Managed by [facility] Assessment & Plan (02/11/2022 9:48 AM CDT): Estradiol 1 mg daily Provera 2.5 mg daily Managed by [facility] Viral warts 03/25/2021 Assessment & Plan (03/25/2021 5:37 PM CDT): Right hand Discussed OTC treatment Handout given Fecal smearing 03/25/2021 Assessment & Plan (08/11/2021 4:25 PM BROWNELL OPERATOR): Docusate does help OK to use daily [...] given. Call if persistent Muscle cramps 03/25/2021 [place] or callus 03/25/2021 Assessment & Plan (03/25/2021 5:41 PM CDT): Between toes Recommend wide-toed shoes; OTC cushion Ear itching 04/01/2020 Assessment & Plan (04/17/2024 3:16 PM CDT): Normal exam Topical triamcinolone 0.1% cream BID PRN Assessment & Plan (02/12/2022 3:29 PM CDT): Normal exam OK to continue the topical steroid as needed Assessment & Plan (08/11/2021 4:25 PM BROWNELL OPERATOR): Normal exam Recommend loratadine and Flonase Assessment & Plan (09/01/2020 9:49 AM BROWNELL OPERATOR): At March 2020 office visit I went [...] year Assessment & Plan (10/12/2022 5:30 PM BROWNELL OPERATOR): Patient screened for future fall risk; documentation [...] . Assessment & Plan (10/12/2022 3:52 PM BROWNELL OPERATOR): discussed healthy diet, exercise and adequate sleep Body mass index is 29.55 kg/m . Assessment & Plan (02/12/2022 9:15 AM CDT): 03/2021 - total 234; Trig 73; HDL 82; LDL 137 discussed healthy diet, exercise and adequate sleep Body mass index is 29.59 kg/m . Assessment & Plan (08/11/2021 4:04 PM BROWNELL OPERATOR): 03/2021 - total 234; Trig 73; HDL [...] . Assessment & Plan (08/30/2020 3:51 PM BROWNELL OPERATOR): discussed healthy diet, exercise and adequate sleep Body mass index is 29.59 kg/m . Assessment & Plan (04/01/2020 9:45 AM CDT): discussed healthy diet, exercise and adequate sleep Body mass index is 28.88 kg/m . Assessment & Plan (09/11/2019 10:14 AM BROWNELL OPERATOR): discussed healthy diet, exercise and adequate sleep Body mass index is 27.46 kg/m . History of abnormal mammogram 09/11/2019 Assessment & Plan (04/17/2024 3:18 PM CDT): [facility] [address] [place] [address] 05/10/2020 - mammogram - BiRads 0 Recommend [...] Assessment & Plan (04/14/2023 4:49 PM CDT): [facility] [address] [place] [address] 05/10/2020 - mammogram - BiRads 0 Recommend [...] Assessment & Plan (01/06/2023 3:12 PM CDT): [facility] [address] [place] [address] 05/10/2020 - mammogram - BiRads 0 Recommend [...] 0 Assessment & Plan (10/12/2022 4:02 PM BROWNELL OPERATOR): [facility] [address] [place] [address] 05/10/2020 - mammogram - BiRads 0 Recommend add'l images both breasts 07/10/2020 - diag delpihne and US bilateral BiRads 3 Recommend 6 month follow-up right breast 01/14/2021 - US right breast BiRads 3 Recommend 6 month right breast US 08/21/2021 - diag delphine and US bilateral BiRads 3 Recommend 6 month followup right breast US follow-up images in February 2022 And currently has annual mammogram scheduled in 2 weeks Assessment & Plan (02/12/2022 9:23 AM CDT): [facility] [address] [place] [address] 05/10/2020 - mammogram - BiRads 0 Recommend [...] next Assessment & Plan (09/11/2019 11:39 AM BROWNELL OPERATOR): ~ May 2019 Did see a breast surgeon. Dr. Juan Ramon Nath. Release for records to see when next mammogram is indicated Pain in both lower extremities 09/11/2019 Assessment & Plan (07/26/2024 1:27 PM BROWNELL OPERATOR): 04/2021 - ABIs normal. Longstanding Weakness with stairs. Symptoms resolve with laying down. presumed related to back/neck pathology. Suspect lumbar stenosis. Exercises have helped in the past, but symptoms worsening Recommend lumbar x-ray. Handout on home exercises. Consider PT [email or web address] Continue use of shoe insoles for support and pain reduction Assessment & Plan (04/17/2024 3:18 PM CDT): 04/2021 - ABIs normal. Longstanding Weakness with stairs. Symptoms resolve with laying down. presumed related to back/neck pathology. Suspect lumbar stenosis. Exercises have helped in the past, but symptoms worsening Recommend lumbar x-ray. Handout on home exercises. Consider PT [email or web address] Assessment & Plan (03/25/2021 5:31 PM CDT): [...] walking Assessment & Plan (09/11/2019 11:39 AM BROWNELL OPERATOR): Longstanding Most likely related to back/neck pathology [...] daily Assessment & Plan (10/12/2022 4:03 PM BROWNELL OPERATOR): 10/10/2018 - EGD 11/16/2018 - EGD 05/15/2019 - EGD - Reflux in lower third of esophagus. 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8 (H) Assessment & Plan (02/11/2022 9:47 AM CDT): 03/2021 - Vit B12, Folate normal Assessment & Plan (08/10/2021 8:43 AM BROWNELL OPERATOR): 03/2021 - Vit B12, Folate normal Assessment & Plan (03/25/2021 5:30 PM CDT): 09/2019 - Vit B 12 930 pg/ml (230-1250) Recheck today Assessment & Plan (04/01/2020 9:40 AM CDT): 09/2019 - Vit B 12 930 pg/ml (230-1250) Assessment & Plan (09/11/2019 11:40 AM BROWNELL OPERATOR): Low last year per patient. Recheck today [...] today Assessment & Plan (10/12/2022 5:29 PM BROWNELL OPERATOR): Last Cologuard Kit 04/08/2020 Will be due [...] nausea Assessment & Plan (09/01/2020 9:50 AM BROWNELL OPERATOR): Reproducible on exam Onset after add'l diagnostic [...] ER visits or hospital stays. Pap through [facility] recommend at least 10 minutes of moderate intensity exercise most days of the week with a goal of 150 minutes weekly. Immunizations Immunization Administration Dates Next Due Influenza, Unspecified 04/17/2024(Deferr ed: Patient Refused),03/09/2024(Deferred: Patient Refused),06/15/2023(Deferred: Patient Refused),03/09/2022(Deferred: Patient Refused),03/09/2021(Deferred: Patient Refused),03/09/2020(Deferred: Patient decision),03/09/2020(Deferred: Patient decision),03/09/2020(Deferred: Patient decision),03/09/2020(Deferred: Patient decision),03/09/2019(Deferred: Patient decision) VisiQuate (J&J) SARS-CoV-2 Vaccination 11/16/2020 Pfizer SARS-CoV-2 Monovalent Vaccination (12+ Yrs) DEE-READY TO USE 08/29/2021 Social History Tobacco Use Types Packs/Day Years [...] on file Legal Sex Female 4:12 PM BROWNELL OPERATOR Gender Identity Not on file Sexual Orientation Not on file Last Filed Vital Signs Vital Sign Reading Time Taken Comments Blood Pressure 134/86 07/26/2024 12:47 PM BROWNELL OPERATOR Pulse 70 07/26/2024 12:47 PM BROWNELL OPERATOR Temperature 36.5 C (97.7 F) 07/26/2024 12:47 PM BROWNELL OPERATOR Respiratory Rate 18 07/26/2024 12:47 PM BROWNELL OPERATOR Oxygen Saturation 99% 07/26/2024 12:47 PM BROWNELL OPERATOR Inhaled Oxygen Concentration - - Weight 77.2 kg (170 lb 3.2 oz) 07/26/2024 12:47 PM BROWNELL OPERATOR Height 160 cm (5' 3 ) 07/26/2024 12:47 PM BROWNELL OPERATOR Body Mass Index 30.15 07/26/2024 12:47 PM BROWNELL OPERATOR Plan of Treatment Not on file Procedures Procedure Name Priority Date/Time Associated Diagnosis [...] Impressions 12/14/2023 12:01 PM CDT BiRads 2 [facility] [address] [place] [address] Historical Provider MD DELGADO MAMMO PROCEDURES Carri l Result * Stool DNA - Cologuard (05/03/2023 5:50 AM CDT) Stool DNA - Cologuard Negative Negative [facility] (CLIA #:[id number]) Comment: NEGATIVE TEST RESULT. A negative Cologuard [...] (Emilia Anderson al, N Engl J Med 2014;370(14):8116-0890) The normal value (reference range) for this assay is negative. COLOGUARD RE-SCREENING RECOMMENDATION: Periodic colorectal cancer screening is an important part of preventive healthcare for asymptomatic individuals at average risk for colorectal cancer. Following a negative Cologuard result, the [place] Cancer Society and U.S. Multi-Society Task Force screening guidelines recommend a Cologuard re-screening interval of 3 years. References: [place] [employer] Guideline for Colorectal Cancer Screening: https://www.cancer.org/cancer/ldeqz-qalpdm-ophuku/jqqjriywf-xbukopicf-ufyhqql/ac s-rec ommendations.html.; Tyree DK, Diamond CR, Marie DrummondK, Colorectal Cancer Screening: Recommendations for Physicians and Patients from the U.S. Multi-Society Task Force on Colorectal Cancer Screening , Am J Gastroenterology 2017; 112:2321-4907. TEST DESCRIPTION: Composite algorithmic analysis of stool [...] (Emilia Anderson al, N Engl J Med 2014;370(14):9151-5347.) Cologuard may produce a false negative or false positive result (no colorectal cancer or precancerous polyp present at colonoscopy follow up). A negative Cologuard test result does not guarantee the absence of CRC or advanced adenoma (pre-cancer). The current Cologuard screening interval is every 3 years. ([place] Cancer Society and U.S. Multi-Society Task Force). Cologuard performance data in a 10,000 patient pivotal study using colonoscopy as the reference method can be accessed at the following location: www.[employer].com/results. Additional description of the Cologuard test process, warnings and precautions can be found at www.[employer].com. Stool 05/03/2023 5:50 AM CDT 05/04/2023 4:27 PM CDT Heather Henderson MD LAB BODY FLUIDS AND STOOL S ORDERABLES Final Result [facility] (CLIA #:[id number]) [place] [address] * Hepatitis C antibody (03/25/2021 3:48 PM [...] 3:48 PM CDT 03/25/2021 7:04 PM CDT Heather Henderson MD LAB MICROBIOLOGY - GENERA L ORDERABLES Final Result [facility] [address] [address] Department of Laboratories [place], [place] [id number] from Last 3 Months or Most Recently Relevant to Health Maintenance Insurance [facility] AETNA MEDICARE GOLD AETNA MEDICARE GOLD AETNA MEDICARE GOLD Care Teams Computer System Specialist Relationship Specialty [place] [address] [facility] [address] [place] [address] PCP - General Family Medicine 09/11/19 Maciej Coker MD [address] [facility] [address] [place] [address] Referring Physician Gastroenterology 04/17/24
--- OUTSIDE RECORDS SUMMARY | 2024-09-25 14:37 | XMS_ITS | Clinical Summary ---
Author Organization [facility] Address [address] [place] [address] Care Team Providers Care Night Manager Name Role Phone Noah Joy MD Primary Care Provider Source Comments [facility],non-owned Affiliates and Associated Physician Practices is amultiple site organization consisting of ambulatory clinics and hospital sitesin [place], [place], [place] and [place]. This disclosure is being madepursuant to the Care Everywhere program and may not contain all information available regarding this patient. Last updated 18.[facility] Social History Tobacco Use Types Packs/Day Years Used Date Smoking Tobacco: Never Assessed Sex and Gender Information Value Date Recorded Sex Assigned at Not on file Gender Identity Not on file Sexual Orientation Not on file Plan of Treatment Health Maintenance Due Date Last Done Comments COLOGUARD (AGES 45-75) - COL ON CA SCREENING 1960 COLON MONITORING 1959 COLONOSCOPY - COLON CA SCREENING 1959 CT COLONOGRAPHY - COLON CA SCREENING 1960 Colorectal Cancer Screening 1959 FIT - COLON CA SCREENING 1959 FLEX SIG - COLON CA SCREENING 1959 LIPID TESTING 1960 MAMMOGRAM 1960 PAP SMEAR 1959 HIV SCREENING 10/31/1974 HEPATITIS C SCREENING 10/27/1977 DTAP/TDAP/TD VACCINES (1 - Tdap) 10/31/1978 PNEUMOCOCCAL VACCINE 50+ (1 of 1 - PCV) 10/31/2009 ZOSTER VACCINE (1 of 2) 10/31/2009 COVID-19 VACCINE ( - 2023-2 5 season) 2024 INFLUENZA VACCINE (#1) 2024 DEPRESSION SCREENING 08/09/2024 Respiratory Syncytial Virus (RSV) Vaccine Pt: or over 60 yrs (1 - 1-dose 75+ series) 10/31/2034 HEPATITIS B VACCINE Aged Out No longe r eligible based on patient's age to complete this topic HIB VACCINE Aged Out No longer eligi ble based on patient's age to complete this topic HPV VACCINE Aged Out No longer eligi ble based on patient's age to complete this topic MENINGOCOCCAL (Group B) VACCINE Aged Out No longer eligible based on patient's age to complete this topic MENINGOCOCCAL VACCINE Aged Out No payton denice eligible based on patient's age to complete this topic PNEUMOCOCCAL VACCINE Aged Out No long er eligible based on patient's age to complete this topic Care Teams Night Manager Relationship Specialty Start Date End Date Noah Joy MD [facility] [address] [address] PCP - General 09/30/22
== END 2024-09-25 11:48 | disposition home or self-care (01) ==
LOC: CHSIMG 11:48
PROVIDERS: PCP Family Medicine; Visit Provider Nurse Practitioner
DX: Z78.0 Asymptomatic menopausal state (principal)
CPT/HCPCS: 77080

== ENCOUNTER 2025-02-08 14:57 | Outpatient (CLI) | payer MEDICARE, SELFPAY ==
--- NOTE | ~2025-02-08 | MM_ITS ---
EXAMINATION: MM screening delphine BI w cindy HISTORY: Screening mammogram TECHNIQUE: Craniocaudal and mediolateral oblique 3-D tomosynthesis images were obtained and synthetic 2-D images were generated. CAD analysis was submitted and interpreted. COMPARISON: 12/14/2023, 11/02/2022, 08/21/2021, 06/10/2020 BREAST PARENCHYMAL COMPOSITION:Not Dense. There are scattered areas of fibroglandular density. FINDINGS: Right breast masses are decreased overall from prior exam, compatible with benign breast cy sts. No overtly suspicious mass identified. Parenchymal pattern of the left breast is unchanged. No s uspicious microcalcification. IMPRESSION: No mammographic evidence of malignancy. Recommend routine screening mammography in one year. BI-RADS Category 2: Benign finding(s). Reviewed, dictated and finalized at location .
== END 2025-02-08 14:58 | disposition home or self-care (01) ==
LOC: MICIMG 14:58
PROVIDERS: PCP Family Medicine; Visit Provider Nurse Practitioner
DX: Z12.31 Encounter for screening mammogram for malignant neoplasm of breast (principal)
CPT/HCPCS: 77063; 77067